=== PATIENT | male | born 1975 | race African-American/Black ===

== ENCOUNTER 2016-03-02 21:45 | Emergency (ER) | payer OTHER ==
[~2016-03-02 21:45] MED LIST: ALBU17IN INH; ALPR0.254 PO; AMLO10TA2 PO; ASPI81TA85 PO; CLAR500T3 PO; DOXY10CA PO; GLYB5TA PO; INVO1TAB4 PO; LISI20TA3 PO; MOTRIN PO; POLY2.5S OS; VENL75TA3 PO; VIST25CA PO
[2016-03-02] MEDS ORDERED: NORCO 5/325MG TABLET (BULK) As Ordered ONE (23:17)
[2016-03-02] MEDS ORDERED: CLINDAMYCIN 150 MG CAP As Ordered ONE (23:17)
--- NOTE | 2016-03-02 23:27 | EDDOCDS ---
Nurse's Notes [facility] Name: Jose C Pugh Age: 40 yrs Sex: Male : 1975 Arrival Date: 03/02/2016 Time: 21:45 Bed TR7 Private MD: Luis Enrique Ramires D Diagnosis: Cellulitis of face Presentation: 03/02 21:49 Presenting complaint: Patient states: that he has a "bump" on his face that it getting ms18 bigger. Pt states that he feels dizzy and nauseous. Adult Sepsis Screening: The patient does not have new or worsening altered mentation. Patient's respiratory rate is less than 22. Systolic blood pressure is greater than 100. Patient has a qSOFA score of 0- Negative Sepsis Screen. Suicide/Homicide risk assessment- the patient denies having any suicidal and/or homicidal ideations and does not present with any other emotional, behavioral or mental health complaints. Status: Patient is not a patient financial services coordinator or dependent. Transition of care: patient was not received from another setting of care. 21:49 Method Of Arrival: Walkin/Carried/Asstd ms18 21:53 Acuity: MARY Level 4 ms18 Triage Assessment: 21:51 General: Appears in no apparent distress, obese, uncomfortable, Behavior is appropriate ms18 for age, cooperative. Pain: Location: left cheek Pain currently is 8 out of 10 on a pain scale. HIV screening NA for this visit Offered previously. Neurological: No deficits noted. Respiratory: No deficits noted. Derm: Skin is pink, warm & dry. normal. Historical: - Allergies: IODINEIODINE CONTAINING; - Home Meds: 1. Invokana oral once daily 2. Lisinopril Oral once daily 3. Xanax 0.25 mg Oral tab 3 times per day 4. Glyburide Unknown Oral 1 tab - PMHx: Anxiety; Depression; Diabetes - IDDM: uncontrolled; Hypertension; - PSHx: none; - Social history: Smoking status: Patient uses tobacco products, current every day smoker. No barriers to communication noted, The patient speaks fluent Urdu. - Family history: Not pertinent. - : The pt / caregiver states he / she is not on anticoagulants. Home medication list is obtained from the patient. - Exposure Risk Screening:: None identified. Screenin:25 Screening information is obtained from the patient. Fall risk: No risks identified. cz Assistance ADL's: requires no assistance with activities of daily living. Abuse/DV Screen: The patient / caregiver reports he/she is: not in a situation that causes fear, pain or injury. Nutritional screening: No deficits noted. home support is adequate. Assessment: 23:25 Reassessment: Patient appears in no apparent distress at this time. Patient states cz symptoms have improved. Vital Signs: 21:47 BP 166 / 82; Pulse 81; Resp 18 S; Temp 98.6(O); Pulse Ox 98% on R/A; Weight 108.86 kg gr2 (R); Height 6 ft. 0 in. (182.88 cm) (R); Pain 4/10; 21:47 Body Mass Index 32.55 (108.86 kg, 182.88 cm) gr2 Vitals: 21:47 Log In Time: March 02, 2016 at 21:47. gr2 ED Course: 21:46 Patient visited by Palak August. gr2 21:46 Luis Enrique Ramires is Private Physician. gr2 21:46 Patient moved to Waiting gr2 21:48 Patient visited by Palak August. gr2 21:48 Patient moved to Pre RCE gr2 21:53 Triage Initiated ms18 22:41 Patient moved to Triage 2 cz 22:54 [facility]odd [facility]. mo1 22:54 Adiel Ryan MD is Attending Physician. mo1 23:06 Patient visited by Benito Dodd PA. mo1 23:18 Luis Enrique Ramires is Referral Physician. mo1 23:22 Patient moved to TR7 cz 23:25 The patient / caregiver is instructed regarding the plan of care and ED course. cz 23:25 No IV's were initiated during this patient's visit. No procedures done that require cz assistance. Administered Medications: 23:20 Drug: Clindamycin 300 mg [clindamycin 150 mg capsule (2 caps)] Route: PO; cz 23:20 Drug: HYDROcodone-acetaminophen 4 pack- 1 packets [hydrocodone 5 mg-acetaminophen 325 cz mg tablet (1 tabs)] {Co-Signature: catherine (Donald Tatum RN).} Route: PO; Order Results: There are currently no results for this order. Outcome: 23:18 Discharge ordered by Provider. mo1 23:25 Discharge Assessment: Patient awake, alert and oriented x 3. No cognitive and/or cz functional deficits noted. Patient verbalized understanding of disposition instructions. patient administered narcotics - no. The following High Risk Discharge criteria are identified: None. Discharged to home ambulatory. Condition: stable. Discharge instructions given to patient, Instructed on discharge instructions, follow up and referral plans. medication usage, Demonstrated understanding of instructions, medications, Pt was receptive of discharge instructions/ teaching. Prescriptions given X 1. No special radiology studies were completed. Property :Personal belongings accompany Pt. 23:26 Patient left the ED. cz Signatures: Rodger Barraza, RN RN cz Palak August gr2 Benito Dodd PA PA mo1 Thu Staples,RN RN ms18 Donald alexander MTDD
--- NOTE | 2016-03-02 23:27 | EDDOCDS ---
Physician Documentation [facility] Name: Jose C Pugh Age: 40 yrs Sex: Male : 1975 Arrival Date: 03/02/2016 Time: 21:45 Bed TR7 Private MD: Luis Enrique Ramires D Disposition: 03/02/16 23:18 Discharged to Home/Self Care. Impression: Cellulitis of face. - Condition is Stable. - Discharge Instructions: Cellulitis. - Prescriptions for Clindamycin HCl 300 mg Oral Capsule - take 1 capsule by ORAL route every 6 hours; 40 capsule. - Medication Reconciliation, Local Pharmacy Hours form. - Follow up: Luis Enrique Ramires; When: Call to arrange an appointment; Reason: Recheck today's complaints, Continuance of care. - Problem is new. - Symptoms are unchanged. Historical: - Allergies: IODINEIODINE CONTAINING; - Home Meds: 1. Invokana oral once daily 2. Lisinopril Oral once daily 3. Xanax 0.25 mg Oral tab 3 times per day 4. Glyburide Unknown Oral 1 tab - PMHx: Anxiety; Depression; Diabetes - IDDM: uncontrolled; Hypertension; - PSHx: none; - Social history: Smoking status: Patient uses tobacco products, current every day smoker. No barriers to communication noted, The patient speaks fluent Mauritanian. - Family history: Not pertinent. - : The pt / caregiver states he / she is not on anticoagulants. Home medication list is obtained from the patient. - Exposure Risk Screening:: None identified. Vital Signs: 03/02 21:47 BP 166 / 82; Pulse 81; Resp 18 S; Temp 98.6(O); Pulse Ox 98% on R/A; Weight 108.86 kg / gr2 240 lbs (R); Height 6 ft. 0 in. (182.88 cm) (R); Pain 4/10; 21:47 Body Mass Index 32.55 (108.86 kg, 182.88 cm) gr2 MDM: 23:15 Clindamycin 300 mg PO once ordered. mo1 23:15 HYDROcodone-acetaminophen 4 pack- 5 mg-325 mg 1 packets PO Per package directions; mo1 Dispense with patient. 1 po q4h prn for pain ordered. Administered Medications: 23:20 Drug: Clindamycin 300 mg [clindamycin 150 mg capsule (2 caps)] Route: PO; cz 23:20 Drug: HYDROcodone-acetaminophen 4 pack- 1 packets [hydrocodone 5 mg-acetaminophen 325 cz mg tablet (1 tabs)] {Co-Signature: catherine (Donald Tatum RN).} Route: PO; Signatures: Rodger Barraza RN RN cz Benito Dodd PA PA mo1 Thu Staples RN RN ms18 Donald alexander MTDD
--- NOTE | 2016-03-05 00:27 | EDDOCDS ---
Nurse's Notes [facility] Name: Jose C Pugh Age: 40 yrs Sex: Male : 1975 Arrival Date: 03/02/2016 Time: 21:45 Bed TR7 Private MD: Luis Enrique Ramires D Diagnosis: Cellulitis of face Presentation: 03/02 21:49 Presenting complaint: Patient states: that he has a "bump" on his face that it getting ms18 bigger. Pt states that he feels dizzy and nauseous. Adult Sepsis Screening: The patient does not have new or worsening altered mentation. Patient's respiratory rate is less than 22. Systolic blood pressure is greater than 100. Patient has a qSOFA score of 0- Negative Sepsis Screen. Suicide/Homicide risk assessment- the patient denies having any suicidal and/or homicidal ideations and does not present with any other emotional, behavioral or mental health complaints. Status: Patient is not a conference services director or dependent. Transition of care: patient was not received from another setting of care. 21:49 Method Of Arrival: Walkin/Carried/Asstd ms18 21:53 Acuity: MARY Level 4 ms18 Triage Assessment: 21:51 General: Appears in no apparent distress, obese, uncomfortable, Behavior is appropriate ms18 for age, cooperative. Pain: Location: left cheek Pain currently is 8 out of 10 on a pain scale. HIV screening NA for this visit Offered previously. Neurological: No deficits noted. Respiratory: No deficits noted. Derm: Skin is pink, warm & dry. normal. Historical: - Allergies: IODINEIODINE CONTAINING; - Home Meds: 1. Invokana oral once daily 2. Lisinopril Oral once daily 3. Xanax 0.25 mg Oral tab 3 times per day 4. Glyburide Unknown Oral 1 tab - PMHx: Anxiety; Depression; Diabetes - IDDM: uncontrolled; Hypertension; - PSHx: none; - Social history: Smoking status: Patient uses tobacco products, current every day smoker. No barriers to communication noted, The patient speaks fluent Malay. - Family history: Not pertinent. - : The pt / caregiver states he / she is not on anticoagulants. Home medication list is obtained from the patient. - Exposure Risk Screening:: None identified. Screenin:25 Screening information is obtained from the patient. Fall risk: No risks identified. cz Assistance ADL's: requires no assistance with activities of daily living. Abuse/DV Screen: The patient / caregiver reports he/she is: not in a situation that causes fear, pain or injury. Nutritional screening: No deficits noted. home support is adequate. Assessment: 23:25 Reassessment: Patient appears in no apparent distress at this time. Patient states cz symptoms have improved. Vital Signs: 21:47 BP 166 / 82; Pulse 81; Resp 18 S; Temp 98.6(O); Pulse Ox 98% on R/A; Weight 108.86 kg gr2 (R); Height 6 ft. 0 in. (182.88 cm) (R); Pain 4/10; 21:47 Body Mass Index 32.55 (108.86 kg, 182.88 cm) gr2 Vitals: 21:47 Log In Time: March 02, 2016 at 21:47. gr2 ED Course: 21:46 Patient visited by Palak August. gr2 21:46 Luis Enrique Ramires is Private Physician. gr2 21:46 Patient moved to Waiting gr2 21:48 Patient visited by Palak August. gr2 21:48 Patient moved to Pre RCE gr2 21:53 Triage Initiated ms18 22:41 Patient moved to Triage 2 cz 22:54 Benito Dodd PA is PHCP. mo1 22:54 Adiel Ryan MD is Attending Physician. mo1 23:06 Patient visited by Benito Dodd PA. mo1 23:18 Luis Enrique Ramires is Referral Physician. mo1 23:22 Patient moved to TR7 cz 23:25 The patient / caregiver is instructed regarding the plan of care and ED course. cz 23:25 No IV's were initiated during this patient's visit. No procedures done that require cz assistance. 23:28 Patient name changed from Jose C\\S\\\\S\\Pugh\\S\\ to Jose C\\S\\ \\S\\Pugh. EDMS 23:30 [facility] Payment Agreement was scanned into [employer] and attached to record. david 03/03 04:45 T-Sheet-- Draft Copy was scanned into [employer] and attached to record. david Administered Medications: 03/02 23:20 Drug: Clindamycin 300 mg [clindamycin 150 mg capsule (2 caps)] Route: PO; cz 23:20 Drug: HYDROcodone-acetaminophen 4 pack- 1 packets [hydrocodone 5 mg-acetaminophen 325 cz mg tablet (1 tabs)] {Co-Signature: catherine (Donald Tatum RN).} Route: PO; Order Results: There are currently no results for this order. Outcome: 23:18 Discharge ordered by Provider. mo1 23:25 Discharge Assessment: Patient awake, alert and oriented x 3. No cognitive and/or cz functional deficits noted. Patient verbalized understanding of disposition instructions. patient administered narcotics - no. The following High Risk Discharge criteria are identified: None. Discharged to home ambulatory. Condition: stable. Discharge instructions given to patient, Instructed on discharge instructions, follow up and referral plans. medication usage, Demonstrated understanding of instructions, medications, Pt was receptive of discharge instructions/ teaching. Prescriptions given X 1. No special radiology studies were completed. Property :Personal belongings accompany Pt. 23:26 Patient left the ED. cz Signatures: Dispatcher [employer] EDMS Rodger Barraza RN RN cz Palak August gr2 Benito Dodd PA PA mo1 Thu Staples RN RN ms18 Kati Mitchell RN Chart Complete MTDD
--- NOTE | 2016-03-05 00:27 | EDDOCDS ---
Physician Documentation [facility] Name: Jose C Pugh Age: 40 yrs Sex: Male : 1975 Arrival Date: 03/02/2016 Time: 21:45 Bed TR7 Private MD: Luis Enrique Ramires D Disposition: 03/02/16 23:18 Discharged to Home/Self Care. Impression: Cellulitis of face. - Condition is Stable. - Discharge Instructions: Cellulitis. - Prescriptions for Clindamycin HCl 300 mg Oral Capsule - take 1 capsule by ORAL route every 6 hours; 40 capsule. - Medication Reconciliation, Local Pharmacy Hours form. - Follow up: Luis Enrique Ramires; When: Call to arrange an appointment; Reason: Recheck today's complaints, Continuance of care. - Problem is new. - Symptoms are unchanged. Historical: - Allergies: IODINEIODINE CONTAINING; - Home Meds: 1. Invokana oral once daily 2. Lisinopril Oral once daily 3. Xanax 0.25 mg Oral tab 3 times per day 4. Glyburide Unknown Oral 1 tab - PMHx: Anxiety; Depression; Diabetes - IDDM: uncontrolled; Hypertension; - PSHx: none; - Social history: Smoking status: Patient uses tobacco products, current every day smoker. No barriers to communication noted, The patient speaks fluent Sudanese. - Family history: Not pertinent. - : The pt / caregiver states he / she is not on anticoagulants. Home medication list is obtained from the patient. - Exposure Risk Screening:: None identified. Vital Signs: 03/02 21:47 BP 166 / 82; Pulse 81; Resp 18 S; Temp 98.6(O); Pulse Ox 98% on R/A; Weight 108.86 kg / gr2 240 lbs (R); Height 6 ft. 0 in. (182.88 cm) (R); Pain 4/10; 21:47 Body Mass Index 32.55 (108.86 kg, 182.88 cm) gr2 MDM: 23:15 Clindamycin 300 mg PO once ordered. mo1 23:15 HYDROcodone-acetaminophen 4 pack- 5 mg-325 mg 1 packets PO Per package directions; mo1 Dispense with patient. 1 po q4h prn for pain ordered. 23:30 [facility] Payment Agreement was scanned into [employer] and attached to record. lja 23:30 Financial registration complete. 03/03 04:45 T-Sheet-- Draft Copy was scanned into [employer] and attached to record. [facility] Administered Medications: 03/02 23:20 Drug: Clindamycin 300 mg [clindamycin 150 mg capsule (2 caps)] Route: PO; cz 23:20 Drug: HYDROcodone-acetaminophen 4 pack- 1 packets [hydrocodone 5 mg-acetaminophen 325 cz mg tablet (1 tabs)] {Co-Signature: catherine (Donald Tatum RN).} Route: PO; Signatures: Rodger Barraza RN RN cz Benito Dodd PA PA mo1 Thu Staples RN RN ms18 Arel, Kati alexander The chart was reviewed and I authenticate all verbal orders and agree with the evaluation and treatment provided.Attachments: 23:30 [facility] Payment Agreement 03/03 04:45 T-Sheet-- Draft Copy [facility] Chart Complete MTDD
--- NOTE | 2016-03-05 00:27 | EDDOCDS ---
Physician Documentation [facility] Name: Jose C Pugh Age: 40 yrs Sex: Male : 1975 Arrival Date: 03/02/2016 Time: 21:45 Bed TR7 Private MD: Luis Enrique Ramires D Disposition: 03/02/16 23:18 Discharged to Home/Self Care. Impression: Cellulitis of face. - Condition is Stable. - Discharge Instructions: Cellulitis. - Prescriptions for Clindamycin HCl 300 mg Oral Capsule - take 1 capsule by ORAL route every 6 hours; 40 capsule. - Medication Reconciliation, Local Pharmacy Hours form. - Follow up: Luis Enrique Ramires; When: Call to arrange an appointment; Reason: Recheck today's complaints, Continuance of care. - Problem is new. - Symptoms are unchanged. Historical: - Allergies: IODINEIODINE CONTAINING; - Home Meds: 1. Invokana oral once daily 2. Lisinopril Oral once daily 3. Xanax 0.25 mg Oral tab 3 times per day 4. Glyburide Unknown Oral 1 tab - PMHx: Anxiety; Depression; Diabetes - IDDM: uncontrolled; Hypertension; - PSHx: none; - Social history: Smoking status: Patient uses tobacco products, current every day smoker. No barriers to communication noted, The patient speaks fluent Malian. - Family history: Not pertinent. - : The pt / caregiver states he / she is not on anticoagulants. Home medication list is obtained from the patient. - Exposure Risk Screening:: None identified. Vital Signs: 03/02 21:47 BP 166 / 82; Pulse 81; Resp 18 S; Temp 98.6(O); Pulse Ox 98% on R/A; Weight 108.86 kg / gr2 240 lbs (R); Height 6 ft. 0 in. (182.88 cm) (R); Pain 4/10; 21:47 Body Mass Index 32.55 (108.86 kg, 182.88 cm) gr2 MDM: 23:15 Clindamycin 300 mg PO once ordered. mo1 23:15 HYDROcodone-acetaminophen 4 pack- 5 mg-325 mg 1 packets PO Per package directions; mo1 Dispense with patient. 1 po q4h prn for pain ordered. 23:30 [facility] Payment Agreement was scanned into [employer] and attached to record. lja 23:30 Financial registration complete. 03/03 04:45 T-Sheet-- Draft Copy was scanned into [employer] and attached to record. [facility] Administered Medications: 03/02 23:20 Drug: Clindamycin 300 mg [clindamycin 150 mg capsule (2 caps)] Route: PO; cz 23:20 Drug: HYDROcodone-acetaminophen 4 pack- 1 packets [hydrocodone 5 mg-acetaminophen 325 cz mg tablet (1 tabs)] {Co-Signature: catherine (Donald Tatum RN).} Route: PO; Signatures: Rodger Barraza RN RN cz Benito Dodd PA PA mo1 Thu Staples RN RN ms18 Arel, Kati alexander The chart was reviewed and I authenticate all verbal orders and agree with the evaluation and treatment provided.Attachments: 23:30 [facility] Payment Agreement 03/03 04:45 T-Sheet-- Draft Copy [facility] Chart Complete MTDD
== END 2016-03-02 23:26 | disposition home or self-care (01) ==
LOC: M ED 21:45
DX: L03.211 Cellulitis of face (principal); F41.9 Anxiety disorder, unspecified; F32.9 Major depressive disorder, single episode, unspecified; E10.9 Type 1 diabetes mellitus without complications; I10 Essential (primary) hypertension; Z72.0 Tobacco use; Z79.899 Other long term (current) drug therapy; Z91.09 Other allergy status, other than to drugs and biological substances

== ENCOUNTER 2016-03-22 22:56 | Emergency (ER) | payer OTHER ==
[2016-03-23] MEDS ORDERED: dexameTHASONE 20 MG/5 ML VIAL (J1100) As Ordered ONE (00:25)
[2016-03-23] MEDS ORDERED: IPRATROPIUM 0.5MG/ALBUTEROL 2.5MG INH SOL UD 3ML (DUONEB)(J7620) As Ordered ONE (00:34)
--- NOTE | 2016-03-23 01:00 | REPUSA ---
CLINICAL HISTORY: Headaches. TECHNIQUE: Multiple axial brain CT scan sections were obtained from base to vertex without contrast a dministration. COMMENTS: The study shows normal configuration of sella turcica. There are no intra or extra-axial collections. There is no mass effect or midline shift. There is no evidence of hematoma formation. No hydrocephal us is present. No abnormal calcifications are noted. No significant abnormalities are seen either in the posterior fossa or supratentorial compartment. The sinuses and left mastoid air cells are patent. IMPRESSION: Right mastoid effusion. No evidence of acute intracranial pathology. Thank you for your kind referral of this patient.
--- NOTE | 2016-03-23 01:04 | REP ---
Clinical: Acute cough . Comparison: 08/03/2011 . Technique: PA and lateral. Findings: The mediastinum and cardiac silhouette are normal. The lung bass are clear and without acute consolidation, effusion, or pneumothorax. The skeletal structures are intact and normal. Impression: 1. No acute cardiopulmonary process. Signed by Ray Lui MD 03/23/2016 12:55 A
--- NOTE | 2016-03-23 02:15 | EDDOCDS ---
Nurse's Notes [facility] Name: Jose C Pugh Age: 40 yrs Sex: Male : 1975 Arrival Date: 03/22/2016 Time: 22:56 Bed 11 Private MD: Luis Enrique Ramires Diagnosis: Acute bronchitis Presentation: 03/22 23:06 Presenting complaint: Patient states: Had a coughing spell that girlfriend said looked jo3 like a seizure. Same thing happened on . Today's episode happened this afternoon. Pt has c/o in left fingers and entire body feels sore and feels like he is having difficulty collecting thoughts Pt reports severe sharp pain to right side of head. Adult Sepsis Screening: The patient does not have new or worsening altered mentation. Patient's respiratory rate is less than 22. Systolic blood pressure is greater than 100. Patient has a qSOFA score of 0- Negative Sepsis Screen. Suicide/Homicide risk assessment- the patient denies having any suicidal and/or homicidal ideations and does not present with any other emotional, behavioral or mental health complaints. Status: Patient is not a community service officer coordinator or dependent. Transition of care: patient was not received from another setting of care. 23:06 Method Of Arrival: Walkin/Carried/Asstd jo3 23:06 Acuity: MARY Level 2 jo3 Triage Assessment: 23:14 General: Appears in no apparent distress, Behavior is appropriate for age, cooperative. jo3 Pain: Pain currently is 9 out of 10 on a pain scale. HIV screening NA for this visit Offered previously. Neurological: Level of Consciousness is awake, alert, Oriented to person, place, time. Respiratory: Airway is patent Respiratory effort is even, unlabored, Derm: Skin is pink, warm & dry. Historical: - Allergies: IODINEIODINE CONTAINING; Tramadol HCl; - Home Meds: 1. Januvia 100 mg oral tab 1 tab once daily Has not started yet 2. Flovent 100mcg diskus Inhl twice a day Has not started yet 3. Motrin Oral 600 mg three times a day 4. alprazolam 0.25 mg Oral TbDL [id number] as needed 5. Paxil 10 mg Oral tab 1 tab once daily 6. Norvasc 10 mg Oral tab 1 tab once daily 7. Ventolin HFA 90 mcg/actuation Nebulizer HFAA 2 puffs every 4-6 hours 8. lisinopril-hydrochlorothiazide 20-25 mg oral tab 1 tab once daily - PMHx: Anxiety; Depression; Diabetes - IDDM: uncontrolled; Hypertension; - PSHx: none; - Social history: Smoking status: Patient uses tobacco products, light tobacco smoker. No barriers to communication noted, The patient speaks fluent Palauan, Speaks appropriately for age. - Family history: Not pertinent. - : The pt / caregiver states he / she is not on anticoagulants. Home medication list is obtained from the patient. - Exposure Risk Screening:: None identified. Screenin:04 Screening information is obtained from the patient. Fall risk: No risks identified. mlc Assistance ADL's: requires no assistance with activities of daily living. Abuse/DV Screen: The patient / caregiver reports he/she is: not in a situation that causes fear, pain or injury. Nutritional screening: No deficits noted. Advance Directives: There is no active DNR order. home support is adequate. Assessment: 23:42 General: Appears in no apparent distress, comfortable, Behavior is appropriate for age, mlc cooperative. Pain: Location: right temporal area and right holiness Pain At worst was 10 out of 10 on a pain scale. Quality of pain is described as stabbing, Is intermittent. Neurological: Level of Consciousness is awake, alert, obeys commands, Oriented to person, place, time, Moves all extremities. Speech is normal, Facial symmetry appears normal, Pupils are PERRLA, Numbness in palmar aspect of distal phalanx of left little finger, palmar aspect of distal phalanx of left ring finger, palmar aspect of distal phalanx of left middle finger, palmar aspect of distal phalanx of left index finger and palmar aspect of distal phalanx of left thumb. Cardiovascular: Capillary refill < 3 seconds Heart tones S1 S2 present Rhythm is regular. Respiratory: Airway is patent Respiratory effort is even, unlabored, Respiratory pattern is regular, Breath sounds are clear bilaterally. Reports cough that is non-productive. GI: Abdomen is non- distended Bowel sounds present X 4 quads. Abd is soft X 4 quads Abd is tender to palpation X 4 quads. Reports vomiting, last vomit was yesterday morning, pt reports it being dark red. Derm: Skin is normal. 03/23 00:33 Reassessment: Patient appears in no apparent distress at this time. Patient states mlc symptoms have not improved. no changes since prior. pt medicated per order. resp easy/unlabored. . 02:05 General: Appears in no apparent distress, comfortable, to be sleeping. Respiratory: mlc Airway is patent Respiratory effort is even, unlabored, Respiratory pattern is regular. 02:13 General: Appears in no apparent distress, comfortable, Behavior is cooperative. mlc Neurological: Level of Consciousness is awake, alert, Oriented to person, place, time. Respiratory: Airway is patent Respiratory effort is even, unlabored, Respiratory pattern is regular. Vital Signs: 03/22 22:59 BP 143 / 79; Pulse 97; Resp 18 S; Temp 99.6(O); Pulse Ox 98% on R/A; Weight 113.4 kg gr2 (R); Height 6 ft. 0 in. (182.88 cm) (R); Pain 2/10; 23:04 Pulse 98 MON; Pulse Ox 97% ; mlc 23:04 BP 143 / 84 (auto/); mlc 23:39 BP 127 / 58 (auto/); mlc 23:40 Pulse 94 MON; Pulse Ox 96% ; mlc 23:45 BP 143 / 78 (auto/); mlc 23:46 Pulse 92 MON; Pulse Ox 95% ; mlc 03/23 00:00 BP 143 / 64 (auto/); mlc 00:01 Pulse 94 MON; Pulse Ox 96% ; mlc 00:15 BP 153 / 82 (auto/); mlc 00:16 Pulse 98 MON; Pulse Ox 95% ; mlc 00:30 Pulse 92 MON; Pulse Ox 96% ; mlc 00:32 BP 138 / 63 (auto/); mlc 00:45 BP 123 / 67 (auto/); mlc 00:46 Pulse 92 MON; Pulse Ox 100% ; mlc 01:00 BP 129 / 63 (auto/); mlc 01:01 Pulse 94 MON; Pulse Ox 93% ; mlc 01:15 BP 139 / 72 (auto/); mlc 01:16 Pulse 96 MON; Pulse Ox 91% ; mlc 01:30 BP 138 / 67 (auto/); mlc 01:31 Pulse 98 MON; Pulse Ox 98% ; mlc 01:45 BP 143 / 71 (auto/); mlc 01:46 Pulse 98 MON; Pulse Ox 98% ; mlc 02:00 BP 118 / 49 (auto/); mlc 02:00 Pulse 94 MON; Pulse Ox 97% ; mlc 02:08 BP 112 / 52; Pulse 86; Resp 18; Temp 98.3(O); Pulse Ox 100% on R/A; Pain 8/10; luis fernando 03/22 22:59 Body Mass Index 33.91 (113.40 kg, 182.88 cm) gr2 Vitals: 03/22 22:59 Log In Time: March 22, 2016 at 22:59. RN notified that patient meets Red Flag gr2 criteria. ED Course: 22:58 Patient visited by Palak August. gr2 22:58 Luis Enrique Ramires is Private Physician. gr2 22:58 Patient moved to Waiting gr2 23:01 Patient visited by Palak August. gr2 23:01 Patient moved to Pre RCE gr2 23:04 Bed in low position. Side rails up X2. mlc 23:08 Triage Initiated jo3 23:30 Nargis Kraft RN is Primary Nurse. jo3 23:30 Patient moved to 11 jo3 23:31 Audie Rocha DO is Attending Physician. cs11 23:31 Patient visited by Audie Rocha DO. cs11 23:38 [facility] was scanned into [employer] and attached to record. pm4 23:43 Patient name changed from Jose C\S\\S\Pugh\S\ to Jose C\S\ \S\Pugh. EDMS 23:46 Patient visited by Nargis Kraft RN. mlc 03/23 00:22 Patient moved to Radiology jenaro 00:34 Patient visited by Nargis Kraft RN. mlc 00:34 The patient / caregiver is instructed regarding the plan of care and ED course. mlc 00:[address] jenaro 01:04 Patient moved to 11 mlc 01:19 CT Head Without Contrast Returned. EDMS 01:19 Chest, 2 View (pa\E\lat) Returned. EDMS 01:51 Patient visited by Daiana Umanzor PCA. luis fernando 02:04 Luis Enrique Ramires is Referral Physician. cs11 02:06 Patient visited by Nargis Kraft RN. mlc 02:09 Patient visited by Daiana Umanzor PCA. luis fernando 02:13 No IV's were initiated during this patient's visit. No procedures done that require mlc assistance. Administered Medications: 00:33 Drug: Decadron - Dexamethasone Sodium Phosphate 10 mg [dexamethasone 4 mg/mL injection mlc solution (2.5 mL)] Route: IM; Site: left vastus lateralis; 00:45 Drug: Albuterol-Ipratropium 3 ml [ipratropium-albuterol 0.5 mg-3 mg(2.5 mg base)/3 mL jc3 nebulization soln (3 mL)] Route: Inhalation; RT: 00:45 Initial Med Neb Given as ordered. Respiratory: Breath sounds are clear Breath sounds jc3 are diminished bilaterally. Order Results: Radiology Order: CT Head Without Contrast Test: CT Head Without Contrast REASON FOR EXAMINATION: headache; ; CLINICAL HISTORY: Headaches.; TECHNIQUE: Multiple axial brain CT scan sections were obtained from base to vertex without contrast a; dministration.; COMMENTS:; The study shows normal configuration of sella turcica. There are no intra or extra-axial collections.; There is no mass effect or midline shift. There is no evidence of hematoma formation. No hydrocephal; us is present. No abnormal calcifications are noted.; No significant abnormalities are seen either in the posterior fossa or supratentorial compartment.; The sinuses and left mastoid air cells are patent.; IMPRESSION:; Right mastoid effusion.; No evidence of acute intracranial pathology.; Thank you for your kind referral of this patient.; ; Radiology Order: Chest, 2 View (pa\E\lat) Test: Chest, 2 View (pa\E\lat) REASON FOR EXAMINATION: Cough; Clinical: Acute cough .; ; Comparison: 08/03/2011 .; ; Technique: PA and lateral.; ; Findings:; The mediastinum and cardiac silhouette are normal. The lung bass are clear and; without acute consolidation, effusion, or pneumothorax. The skeletal structures; are intact and normal.; ; Impression:; 1. No acute cardiopulmonary process.; ; ; Signed by; Ray Lui MD 03/23/2016 12:55 A; Outcome: 02:04 Discharge ordered by Provider. cs11 02:13 Discharge Assessment: Patient awake, alert and oriented x 3. No cognitive and/or mlc functional deficits noted. Patient verbalized understanding of disposition instructions. patient administered narcotics - no. The following High Risk Discharge criteria are identified: None. Discharged to home ambulatory. Condition: good Condition: stable. Discharge instructions given to patient, Instructed on discharge instructions, follow up and referral plans. medication usage, Demonstrated understanding of instructions, medications, Pt was receptive of discharge instructions/ teaching. Prescriptions given X 2, Work note provided to patient. CT Study completed. Property sent home with patient. 02:15 [place] [facility] [place] Signatures: Dispatcher [employer] EDMS Abel Bai Jennifer, RN RN [email or web address] Sumit Reynolds jc3 Daiana Umanzor, CATHI SET UP MECHANIC CROWN ASSEMBLY MACHINE Audie Love, DO DO cs11 Palak August gr2 Nargis Kraft RN RN [facility] Luis Eduardo Joseph, Reg Reg pm4 Corrections: (The following items were deleted from the chart) 03/22 23:16 23:06 Presenting complaint: Patient states: Had a coughing spell that girlfriend said jo3 looked like a seizure. Same thing happened on . Today's episode happened this afternoon. Pt has c/o in left fingers and entire body feels sore and feels like he is having difficulty collecting thoughts jo3 23:16 23:06 Acuity: MARY Level 3 jo3 jo3 MTDD
--- NOTE | 2016-03-23 02:15 | EDDOCDS ---
Physician Documentation [facility] Name: Jose C Pugh Age: 40 yrs Sex: Male : 1975 Arrival Date: 03/22/2016 Time: 22:56 Bed 11 Private MD: Luis Enrique Ramires Disposition: 03/23/16 02:04 Discharged to Home/Self Care. Impression: Acute bronchitis. - Condition is Stable. - Prescriptions for Prednisone 20 mg Oral Tablet - take 3 tablet by ORAL route once daily for 5 days; 15 tablet. Zithromax Z- Antonio 250 mg Oral Tablet - take 1 tablet by ORAL route as directed for 5 days Day 1- take two tablets once. Day 2, 3, 4 , 5 take one tablet once daily.; 6 tablet. - Medication Reconciliation, Local Pharmacy Hours, Work Release Form - 1 day form. - Follow up: Luis Enrique Ramires; When: Call to arrange an appointment; Reason: Recheck today's complaints. - Problem is an ongoing problem. - Symptoms have improved. Historical: - Allergies: IODINEIODINE CONTAINING; Tramadol HCl; - Home Meds: 1. Januvia 100 mg oral tab 1 tab once daily Has not started yet 2. Flovent 100mcg diskus Inhl twice a day Has not started yet 3. Motrin Oral 600 mg three times a day 4. alprazolam 0.25 mg Oral TbDL [id number] as needed 5. Paxil 10 mg Oral tab 1 tab once daily 6. Norvasc 10 mg Oral tab 1 tab once daily 7. Ventolin HFA 90 mcg/actuation Nebulizer HFAA 2 puffs every 4-6 hours 8. lisinopril-hydrochlorothiazide 20-25 mg oral tab 1 tab once daily - PMHx: Anxiety; Depression; Diabetes - IDDM: uncontrolled; Hypertension; - PSHx: none; - Social history: Smoking status: Patient uses tobacco products, light tobacco smoker. No barriers to communication noted, The patient speaks fluent Argentine, Speaks appropriately for age. - Family history: Not pertinent. - : The pt / caregiver states he / she is not on anticoagulants. Home medication list is obtained from the patient. - Exposure Risk Screening:: None identified. Vital Signs: 03/22 22:59 BP 143 / 79; Pulse 97; Resp 18 S; Temp 99.6(O); Pulse Ox 98% on R/A; Weight 113.4 kg / gr2 250 lbs (R); Height 6 ft. 0 in. (182.88 cm) (R); Pain 2/10; 23:04 Pulse 98 MON; Pulse Ox 97% ; mlc 23:04 BP 143 / 84 (auto/); mlc 23:39 BP 127 / 58 (auto/); mlc 23:40 Pulse 94 MON; Pulse Ox 96% ; mlc 23:45 BP 143 / 78 (auto/); mlc 23:46 Pulse 92 MON; Pulse Ox 95% ; mlc 03/23 00:00 BP 143 / 64 (auto/); mlc 00:01 Pulse 94 MON; Pulse Ox 96% ; mlc 00:15 BP 153 / 82 (auto/); mlc 00:16 Pulse 98 MON; Pulse Ox 95% ; mlc 00:30 Pulse 92 MON; Pulse Ox 96% ; mlc 00:32 BP 138 / 63 (auto/); mlc 00:45 BP 123 / 67 (auto/); mlc 00:46 Pulse 92 MON; Pulse Ox 100% ; mlc 01:00 BP 129 / 63 (auto/); mlc 01:01 Pulse 94 MON; Pulse Ox 93% ; mlc 01:15 BP 139 / 72 (auto/); mlc 01:16 Pulse 96 MON; Pulse Ox 91% ; mlc 01:30 BP 138 / 67 (auto/); mlc 01:31 Pulse 98 MON; Pulse Ox 98% ; mlc 01:45 BP 143 / 71 (auto/); mlc 01:46 Pulse 98 MON; Pulse Ox 98% ; mlc 02:00 BP 118 / 49 (auto/); mlc 02:00 Pulse 94 MON; Pulse Ox 97% ; mlc 02:08 BP 112 / 52; Pulse 86; Resp 18; Temp 98.3(O); Pulse Ox 100% on R/A; Pain 8/10; luis fernando 03/22 22:59 Body Mass Index 33.91 (113.40 kg, 182.88 cm) gr2 MDM: 03/22 23:37 Financial registration complete. pm4 23:38 [facility] Payment Agreement was scanned into [employer] and attached to record. pm4 03/23 00:19 CT Head Without Contrast Ordered. EDMS 00:21 Chest, 2 View (pa\E\lat) Ordered. EDMS 00:22 Decadron - Dexamethasone Sodium Phosphate 10 mg IM once ordered. cs11 00:22 Albuterol-Ipratropium 3 ml Inhalation once ordered. cs11 00:22 Call Respiratory ordered. cs11 00:22 Call Respiratory complete. luis fernando Administered Medications: 00:33 Drug: Decadron - Dexamethasone Sodium Phosphate 10 mg [dexamethasone 4 mg/mL injection mlc solution (2.5 mL)] Route: IM; Site: left vastus lateralis; 00:45 Drug: Albuterol-Ipratropium 3 ml [ipratropium-albuterol 0.5 mg-3 mg(2.5 mg base)/3 mL jc3 nebulization soln (3 mL)] Route: Inhalation; Signatures: Dispatcher [employer] EDMS Berenice Banerjee RN RN jo3 Daiana Umanzor, BAND PRESSER BAND PRESSER Audie Love, DO DO cs11 Nargis Kraft RN RN mlc Montondo, Paul, Reg Reg pm4 Sumit Reynolds jc3 The chart was reviewed and I authenticate all verbal orders and agree with the evaluation and treatment provided.Attachments: 03/22 23:38 [facility] [place] Agreement pm4 MTDD
--- NOTE | 2016-03-25 03:15 | EDDOCDS ---
Nurse's Notes [facility] Name: Jose C Pugh Age: 40 yrs Sex: Male : 1975 Arrival Date: 03/22/2016 Time: 22:56 Bed 11 Private MD: Luis Enrique Ramires Diagnosis: Acute bronchitis Presentation: 03/22 23:06 Presenting complaint: Patient states: Had a coughing spell that girlfriend said looked jo3 like a seizure. Same thing happened on . Today's episode happened this afternoon. Pt has c/o in left fingers and entire body feels sore and feels like he is having difficulty collecting thoughts Pt reports severe sharp pain to right side of head. Adult Sepsis Screening: The patient does not have new or worsening altered mentation. Patient's respiratory rate is less than 22. Systolic blood pressure is greater than 100. Patient has a qSOFA score of 0- Negative Sepsis Screen. Suicide/Homicide risk assessment- the patient denies having any suicidal and/or homicidal ideations and does not present with any other emotional, behavioral or mental health complaints. Status: Patient is not a director of home health services or dependent. Transition of care: patient was not received from another setting of care. 23:06 Method Of Arrival: Walkin/Carried/Asstd jo3 23:06 Acuity: MARY Level 2 jo3 Triage Assessment: 23:14 General: Appears in no apparent distress, Behavior is appropriate for age, cooperative. jo3 Pain: Pain currently is 9 out of 10 on a pain scale. HIV screening NA for this visit Offered previously. Neurological: Level of Consciousness is awake, alert, Oriented to person, place, time. Respiratory: Airway is patent Respiratory effort is even, unlabored, Derm: Skin is pink, warm & dry. Historical: - Allergies: IODINEIODINE CONTAINING; Tramadol HCl; - Home Meds: 1. Januvia 100 mg oral tab 1 tab once daily Has not started yet 2. Flovent 100mcg diskus Inhl twice a day Has not started yet 3. Motrin Oral 600 mg three times a day 4. alprazolam 0.25 mg Oral TbDL [id number] as needed 5. Paxil 10 mg Oral tab 1 tab once daily 6. Norvasc 10 mg Oral tab 1 tab once daily 7. Ventolin HFA 90 mcg/actuation Nebulizer HFAA 2 puffs every 4-6 hours 8. lisinopril-hydrochlorothiazide 20-25 mg oral tab 1 tab once daily - PMHx: Anxiety; Depression; Diabetes - IDDM: uncontrolled; Hypertension; - PSHx: none; - Social history: Smoking status: Patient uses tobacco products, light tobacco smoker. No barriers to communication noted, The patient speaks fluent Greek, Speaks appropriately for age. - Family history: Not pertinent. - : The pt / caregiver states he / she is not on anticoagulants. Home medication list is obtained from the patient. - Exposure Risk Screening:: None identified. Screenin:04 Screening information is obtained from the patient. Fall risk: No risks identified. mlc Assistance ADL's: requires no assistance with activities of daily living. Abuse/DV Screen: The patient / caregiver reports he/she is: not in a situation that causes fear, pain or injury. Nutritional screening: No deficits noted. Advance Directives: There is no active DNR order. home support is adequate. Assessment: 23:42 General: Appears in no apparent distress, comfortable, Behavior is appropriate for age, mlc cooperative. Pain: Location: right temporal area and right christianity Pain At worst was 10 out of 10 on a pain scale. Quality of pain is described as stabbing, Is intermittent. Neurological: Level of Consciousness is awake, alert, obeys commands, Oriented to person, place, time, Moves all extremities. Speech is normal, Facial symmetry appears normal, Pupils are PERRLA, Numbness in palmar aspect of distal phalanx of left little finger, palmar aspect of distal phalanx of left ring finger, palmar aspect of distal phalanx of left middle finger, palmar aspect of distal phalanx of left index finger and palmar aspect of distal phalanx of left thumb. Cardiovascular: Capillary refill < 3 seconds Heart tones S1 S2 present Rhythm is regular. Respiratory: Airway is patent Respiratory effort is even, unlabored, Respiratory pattern is regular, Breath sounds are clear bilaterally. Reports cough that is non-productive. GI: Abdomen is non- distended Bowel sounds present X 4 quads. Abd is soft X 4 quads Abd is tender to palpation X 4 quads. Reports vomiting, last vomit was yesterday morning, pt reports it being dark red. Derm: Skin is normal. 03/23 00:33 Reassessment: Patient appears in no apparent distress at this time. Patient states mlc symptoms have not improved. no changes since prior. pt medicated per order. resp easy/unlabored. . 02:05 General: Appears in no apparent distress, comfortable, to be sleeping. Respiratory: mlc Airway is patent Respiratory effort is even, unlabored, Respiratory pattern is regular. 02:13 General: Appears in no apparent distress, comfortable, Behavior is cooperative. mlc Neurological: Level of Consciousness is awake, alert, Oriented to person, place, time. Respiratory: Airway is patent Respiratory effort is even, unlabored, Respiratory pattern is regular. Vital Signs: 03/22 22:59 BP 143 / 79; Pulse 97; Resp 18 S; Temp 99.6(O); Pulse Ox 98% on R/A; Weight 113.4 kg gr2 (R); Height 6 ft. 0 in. (182.88 cm) (R); Pain 2/10; 23:04 Pulse 98 MON; Pulse Ox 97% ; mlc 23:04 BP 143 / 84 (auto/); mlc 23:39 BP 127 / 58 (auto/); mlc 23:40 Pulse 94 MON; Pulse Ox 96% ; mlc 23:45 BP 143 / 78 (auto/); mlc 23:46 Pulse 92 MON; Pulse Ox 95% ; mlc 03/23 00:00 BP 143 / 64 (auto/); mlc 00:01 Pulse 94 MON; Pulse Ox 96% ; mlc 00:15 BP 153 / 82 (auto/); mlc 00:16 Pulse 98 MON; Pulse Ox 95% ; mlc 00:30 Pulse 92 MON; Pulse Ox 96% ; mlc 00:32 BP 138 / 63 (auto/); mlc 00:45 BP 123 / 67 (auto/); mlc 00:46 Pulse 92 MON; Pulse Ox 100% ; mlc 01:00 BP 129 / 63 (auto/); mlc 01:01 Pulse 94 MON; Pulse Ox 93% ; mlc 01:15 BP 139 / 72 (auto/); mlc 01:16 Pulse 96 MON; Pulse Ox 91% ; mlc 01:30 BP 138 / 67 (auto/); mlc 01:31 Pulse 98 MON; Pulse Ox 98% ; mlc 01:45 BP 143 / 71 (auto/); mlc 01:46 Pulse 98 MON; Pulse Ox 98% ; mlc 02:00 BP 118 / 49 (auto/); mlc 02:00 Pulse 94 MON; Pulse Ox 97% ; mlc 02:08 BP 112 / 52; Pulse 86; Resp 18; Temp 98.3(O); Pulse Ox 100% on R/A; Pain 8/10; luis fernando 03/22 22:59 Body Mass Index 33.91 (113.40 kg, 182.88 cm) gr2 Vitals: 03/22 22:59 Log In Time: March 22, 2016 at 22:59. RN notified that patient meets Red Flag gr2 criteria. ED Course: 22:58 Patient visited by Palak August. gr2 22:58 Luis Enrique Ramires is Private Physician. gr2 22:58 Patient moved to Waiting gr2 23:01 Patient visited by Palak August. gr2 23:01 Patient moved to Pre RCE gr2 23:04 Bed in low position. Side rails up X2. mlc 23:08 Triage Initiated jo3 23:30 Nargis Kraft RN is Primary Nurse. jo3 23:30 Patient moved to 11 jo3 23:31 Audie Rocha DO is Attending Physician. cs11 23:31 Patient visited by Audie Rocha DO. cs11 23:38 [facility] Payment Agreement was scanned into [employer] and attached to record. pm4 23:43 Patient name changed from Jose C\S\\S\Pugh\S\ to Jose C\S\ \S\Pugh. EDMS 23:46 Patient visited by Nargis Kraft RN. mlc 03/23 00:22 Patient moved to Radiology jenaro 00:34 Patient visited by Nargis Kraft RN. mlc 00:34 The patient / caregiver is instructed regarding the plan of care and ED course. mlc 00:[address] jenaro 01:04 Patient moved to 11 mlc 01:19 CT Head Without Contrast Returned. EDMS 01:19 Chest, 2 View (pa\E\lat) Returned. EDMS 01:51 Patient visited by Daiana Umanzor PCA. luis fernando 02:04 Luis Enrique Ramires is Referral Physician. cs11 02:06 Patient visited by Nargis Kratf RN. mlc 02:09 Patient visited by Daiana Umanzor PCA. luis fernando 02:13 No IV's were initiated during this patient's visit. No procedures done that require mlc assistance. 12:36 T-Sheet-- Draft Copy was scanned into [employer] and attached to record. gb Administered Medications: 00:33 Drug: Decadron - Dexamethasone Sodium Phosphate 10 mg [dexamethasone 4 mg/mL injection mlc solution (2.5 mL)] Route: IM; Site: left vastus lateralis; 00:45 Drug: Albuterol-Ipratropium 3 ml [ipratropium-albuterol 0.5 mg-3 mg(2.5 mg base)/3 mL jc3 nebulization soln (3 mL)] Route: Inhalation; RT: 00:45 Initial Med Neb Given as ordered. Respiratory: Breath sounds are clear Breath sounds jc3 are diminished bilaterally. Order Results: Radiology Order: CT Head Without Contrast Test: CT Head Without Contrast REASON FOR EXAMINATION: headache; ; CLINICAL HISTORY: Headaches.; TECHNIQUE: Multiple axial brain CT scan sections were obtained from base to vertex without contrast a; dministration.; COMMENTS:; The study shows normal configuration of sella turcica. There are no intra or extra-axial collections.; There is no mass effect or midline shift. There is no evidence of hematoma formation. No hydrocephal; us is present. No abnormal calcifications are noted.; No significant abnormalities are seen either in the posterior fossa or supratentorial compartment.; The sinuses and left mastoid air cells are patent.; IMPRESSION:; Right mastoid effusion.; No evidence of acute intracranial pathology.; Thank you for your kind referral of this patient.; ; Radiology Order: Chest, 2 View (pa\E\lat) Test: Chest, 2 View (pa\E\lat) REASON FOR EXAMINATION: Cough; Clinical: Acute cough .; ; Comparison: 08/03/2011 .; ; Technique: PA and lateral.; ; Findings:; The mediastinum and cardiac silhouette are normal. The lung bass are clear and; without acute consolidation, effusion, or pneumothorax. The skeletal structures; are intact and normal.; ; Impression:; 1. No acute cardiopulmonary process.; ; ; Signed by; Ray Lui MD 03/23/2016 12:55 A; Outcome: 02:04 Discharge ordered by Provider. cs11 02:13 Discharge Assessment: Patient awake, alert and oriented x 3. No cognitive and/or mlc functional deficits noted. Patient verbalized understanding of disposition instructions. patient administered narcotics - no. The following High Risk Discharge criteria are identified: None. Discharged to home ambulatory. Condition: good Condition: stable. Discharge instructions given to patient, Instructed on discharge instructions, follow up and referral plans. medication usage, Demonstrated understanding of instructions, medications, Pt was receptive of discharge instructions/ teaching. Prescriptions given X 2, Work note provided to patient. CT Study completed. Property sent home with patient. 02:15 Patient left the ED. mlc Signatures: Dispatcher [employer] EDMS Abel Bai jenaro Rakel Rdz, Reg Reg gb Berenice Banerjee,RN RN jo3 Sumit Reynolds jc3 Daiana Umanzor, CATHI SPRING CRATER Audie Love DO DO cs11 Palak August gr2 Nargis Kraft RN RN [facility] Luis Eduardo Joseph, Reg Reg pm4 Corrections: (The following items were deleted from the chart) 03/22 23:16 23:06 Presenting complaint: Patient states: Had a coughing spell that girlfriend said jo3 looked like a seizure. Same thing happened on . Today's episode happened this afternoon. Pt has c/o in left fingers and entire body feels sore and feels like he is having difficulty collecting thoughts jo3 23:16 23:06 Acuity: MARY Level 3 jo3 jo3 Chart Complete MTDD
--- NOTE | 2016-03-25 03:15 | EDDOCDS ---
Physician Documentation [facility] Name: Jose C Pugh Age: 40 yrs Sex: Male : 1975 Arrival Date: 03/22/2016 Time: 22:56 Bed 11 Private MD: Luis Enrique Ramires Disposition: 03/23/16 02:04 Discharged to Home/Self Care. Impression: Acute bronchitis. - Condition is Stable. - Prescriptions for Prednisone 20 mg Oral Tablet - take 3 tablet by ORAL route once daily for 5 days; 15 tablet. Zithromax Z- Antonio 250 mg Oral Tablet - take 1 tablet by ORAL route as directed for 5 days Day 1- take two tablets once. Day 2, 3, 4 , 5 take one tablet once daily.; 6 tablet. - Medication Reconciliation, Local Pharmacy Hours, Work Release Form - 1 day form. - Follow up: Luis Enrique Ramires; When: Call to arrange an appointment; Reason: Recheck today's complaints. - Problem is an ongoing problem. - Symptoms have improved. Historical: - Allergies: IODINEIODINE CONTAINING; Tramadol HCl; - Home Meds: 1. Januvia 100 mg oral tab 1 tab once daily Has not started yet 2. Flovent 100mcg diskus Inhl twice a day Has not started yet 3. Motrin Oral 600 mg three times a day 4. alprazolam 0.25 mg Oral TbDL [id number] as needed 5. Paxil 10 mg Oral tab 1 tab once daily 6. Norvasc 10 mg Oral tab 1 tab once daily 7. Ventolin HFA 90 mcg/actuation Nebulizer HFAA 2 puffs every 4-6 hours 8. lisinopril-hydrochlorothiazide 20-25 mg oral tab 1 tab once daily - PMHx: Anxiety; Depression; Diabetes - IDDM: uncontrolled; Hypertension; - PSHx: none; - Social history: Smoking status: Patient uses tobacco products, light tobacco smoker. No barriers to communication noted, The patient speaks fluent Telugu, Speaks appropriately for age. - Family history: Not pertinent. - : The pt / caregiver states he / she is not on anticoagulants. Home medication list is obtained from the patient. - Exposure Risk Screening:: None identified. Vital Signs: 03/22 22:59 BP 143 / 79; Pulse 97; Resp 18 S; Temp 99.6(O); Pulse Ox 98% on R/A; Weight 113.4 kg / gr2 250 lbs (R); Height 6 ft. 0 in. (182.88 cm) (R); Pain 2/10; 23:04 Pulse 98 MON; Pulse Ox 97% ; mlc 23:04 BP 143 / 84 (auto/); mlc 23:39 BP 127 / 58 (auto/); mlc 23:40 Pulse 94 MON; Pulse Ox 96% ; mlc 23:45 BP 143 / 78 (auto/); mlc 23:46 Pulse 92 MON; Pulse Ox 95% ; mlc 03/23 00:00 BP 143 / 64 (auto/); mlc 00:01 Pulse 94 MON; Pulse Ox 96% ; mlc 00:15 BP 153 / 82 (auto/); mlc 00:16 Pulse 98 MON; Pulse Ox 95% ; mlc 00:30 Pulse 92 MON; Pulse Ox 96% ; mlc 00:32 BP 138 / 63 (auto/); mlc 00:45 BP 123 / 67 (auto/); mlc 00:46 Pulse 92 MON; Pulse Ox 100% ; mlc 01:00 BP 129 / 63 (auto/); mlc 01:01 Pulse 94 MON; Pulse Ox 93% ; mlc 01:15 BP 139 / 72 (auto/); mlc 01:16 Pulse 96 MON; Pulse Ox 91% ; mlc 01:30 BP 138 / 67 (auto/); mlc 01:31 Pulse 98 MON; Pulse Ox 98% ; mlc 01:45 BP 143 / 71 (auto/); mlc 01:46 Pulse 98 MON; Pulse Ox 98% ; mlc 02:00 BP 118 / 49 (auto/); mlc 02:00 Pulse 94 MON; Pulse Ox 97% ; mlc 02:08 BP 112 / 52; Pulse 86; Resp 18; Temp 98.3(O); Pulse Ox 100% on R/A; Pain 8/10; luis fernando 03/22 22:59 Body Mass Index 33.91 (113.40 kg, 182.88 cm) gr2 MDM: 03/22 23:37 Financial registration complete. pm4 23:38 [facility] Payment Agreement was scanned into [employer] and attached to record. pm4 03/23 00:19 CT Head Without Contrast Ordered. EDMS 00:21 Chest, 2 View (pa\E\lat) Ordered. EDMS 00:22 Decadron - Dexamethasone Sodium Phosphate 10 mg IM once ordered. cs11 00:22 Albuterol-Ipratropium 3 ml Inhalation once ordered. cs11 00:22 Call Respiratory ordered. cs11 00:22 Call Respiratory complete. luis fernando 12:36 T-Sheet-- Draft Copy was scanned into [employer] and attached to record. gb 03/24 20:09 ED course: luis enrique ramires faxed formal report of ct head for fu mlg. ml Administered Medications: 03/23 00:33 Drug: Decadron - Dexamethasone Sodium Phosphate 10 mg [dexamethasone 4 mg/mL injection mlc solution (2.5 mL)] Route: IM; Site: left vastus lateralis; 00:45 Drug: Albuterol-Ipratropium 3 ml [ipratropium-albuterol 0.5 mg-3 mg(2.5 mg base)/3 mL jc3 nebulization soln (3 mL)] Route: Inhalation; Signatures: Dispatcher [employer] EDMS Dafne Cardona MD MD Rakel Rdz, Reg Reg gb Berenice Banerjee RN RN jo3 Daiana Umanzor, IT ARCHITECTURE CONSULTANT IT ARCHITECTURE CONSULTANT luis fernando Audie Rocha, DO DO cs11 Nargis Kraft RN RN [facility] Luis Eduardo Joseph, Reg Reg pm4 Sumit Reynolds3 The chart was reviewed and I authenticate all verbal orders and agree with the evaluation and treatment provided.Attachments: 03/22 23:38 [facility] Payment Agreement pm4 03/23 12:36 T-Sheet-- Draft Copy gb Chart Complete MTDD
--- NOTE | 2016-03-25 03:15 | EDDOCDS ---
Physician Documentation [facility] Name: Jose C Pugh Age: 40 yrs Sex: Male : 1975 Arrival Date: 03/22/2016 Time: 22:56 Bed 11 Private MD: Luis Enrique Ramires Disposition: 03/23/16 02:04 Discharged to Home/Self Care. Impression: Acute bronchitis. - Condition is Stable. - Prescriptions for Prednisone 20 mg Oral Tablet - take 3 tablet by ORAL route once daily for 5 days; 15 tablet. Zithromax Z- Antonio 250 mg Oral Tablet - take 1 tablet by ORAL route as directed for 5 days Day 1- take two tablets once. Day 2, 3, 4 , 5 take one tablet once daily.; 6 tablet. - Medication Reconciliation, Local Pharmacy Hours, Work Release Form - 1 day form. - Follow up: Luis Enrique Ramires; When: Call to arrange an appointment; Reason: Recheck today's complaints. - Problem is an ongoing problem. - Symptoms have improved. Historical: - Allergies: IODINEIODINE CONTAINING; Tramadol HCl; - Home Meds: 1. Januvia 100 mg oral tab 1 tab once daily Has not started yet 2. Flovent 100mcg diskus Inhl twice a day Has not started yet 3. Motrin Oral 600 mg three times a day 4. alprazolam 0.25 mg Oral TbDL [id number] as needed 5. Paxil 10 mg Oral tab 1 tab once daily 6. Norvasc 10 mg Oral tab 1 tab once daily 7. Ventolin HFA 90 mcg/actuation Nebulizer HFAA 2 puffs every 4-6 hours 8. lisinopril-hydrochlorothiazide 20-25 mg oral tab 1 tab once daily - PMHx: Anxiety; Depression; Diabetes - IDDM: uncontrolled; Hypertension; - PSHx: none; - Social history: Smoking status: Patient uses tobacco products, light tobacco smoker. No barriers to communication noted, The patient speaks fluent Tajik, Speaks appropriately for age. - Family history: Not pertinent. - : The pt / caregiver states he / she is not on anticoagulants. Home medication list is obtained from the patient. - Exposure Risk Screening:: None identified. Vital Signs: 03/22 22:59 BP 143 / 79; Pulse 97; Resp 18 S; Temp 99.6(O); Pulse Ox 98% on R/A; Weight 113.4 kg / gr2 250 lbs (R); Height 6 ft. 0 in. (182.88 cm) (R); Pain 2/10; 23:04 Pulse 98 MON; Pulse Ox 97% ; mlc 23:04 BP 143 / 84 (auto/); mlc 23:39 BP 127 / 58 (auto/); mlc 23:40 Pulse 94 MON; Pulse Ox 96% ; mlc 23:45 BP 143 / 78 (auto/); mlc 23:46 Pulse 92 MON; Pulse Ox 95% ; mlc 03/23 00:00 BP 143 / 64 (auto/); mlc 00:01 Pulse 94 MON; Pulse Ox 96% ; mlc 00:15 BP 153 / 82 (auto/); mlc 00:16 Pulse 98 MON; Pulse Ox 95% ; mlc 00:30 Pulse 92 MON; Pulse Ox 96% ; mlc 00:32 BP 138 / 63 (auto/); mlc 00:45 BP 123 / 67 (auto/); mlc 00:46 Pulse 92 MON; Pulse Ox 100% ; mlc 01:00 BP 129 / 63 (auto/); mlc 01:01 Pulse 94 MON; Pulse Ox 93% ; mlc 01:15 BP 139 / 72 (auto/); mlc 01:16 Pulse 96 MON; Pulse Ox 91% ; mlc 01:30 BP 138 / 67 (auto/); mlc 01:31 Pulse 98 MON; Pulse Ox 98% ; mlc 01:45 BP 143 / 71 (auto/); mlc 01:46 Pulse 98 MON; Pulse Ox 98% ; mlc 02:00 BP 118 / 49 (auto/); mlc 02:00 Pulse 94 MON; Pulse Ox 97% ; mlc 02:08 BP 112 / 52; Pulse 86; Resp 18; Temp 98.3(O); Pulse Ox 100% on R/A; Pain 8/10; luis fernando 03/22 22:59 Body Mass Index 33.91 (113.40 kg, 182.88 cm) gr2 MDM: 03/22 23:37 Financial registration complete. pm4 23:38 [facility] Payment Agreement was scanned into [employer] and attached to record. pm4 03/23 00:19 CT Head Without Contrast Ordered. EDMS 00:21 Chest, 2 View (pa\E\lat) Ordered. EDMS 00:22 Decadron - Dexamethasone Sodium Phosphate 10 mg IM once ordered. cs11 00:22 Albuterol-Ipratropium 3 ml Inhalation once ordered. cs11 00:22 Call Respiratory ordered. cs11 00:22 Call Respiratory complete. luis fernando 12:36 T-Sheet-- Draft Copy was scanned into [employer] and attached to record. gb 03/24 20:09 ED course: luis enrique ramires faxed formal report of ct head for fu mlg. ml Administered Medications: 03/23 00:33 Drug: Decadron - Dexamethasone Sodium Phosphate 10 mg [dexamethasone 4 mg/mL injection mlc solution (2.5 mL)] Route: IM; Site: left vastus lateralis; 00:45 Drug: Albuterol-Ipratropium 3 ml [ipratropium-albuterol 0.5 mg-3 mg(2.5 mg base)/3 mL jc3 nebulization soln (3 mL)] Route: Inhalation; Signatures: Dispatcher [employer] EDMS Dafne Cardona MD MD Rakel Rdz, Reg Reg gb Berenice Banerjee RN RN jo3 Daiana Umanzor, WOOD HEEL BACK LINER WOOD HEEL BACK LINER luis fernando Audie Rocha, DO DO cs11 Nargis Kraft RN RN [facility] [place] Luis Eduardo Joseph, Reg Reg pm4 Sumit Reynolds3 The chart was reviewed and I authenticate all verbal orders and agree with the evaluation and treatment provided.Attachments: 03/22 23:38 [facility] Payment Agreement pm4 03/23 12:36 T-Sheet-- Draft Copy gb Chart Complete MTDD
== END 2016-03-23 02:15 | disposition home or self-care (01) ==
LOC: M ED 22:56
DX: J20.9 Acute bronchitis, unspecified (principal); F41.9 Anxiety disorder, unspecified; F32.9 Major depressive disorder, single episode, unspecified; E10.9 Type 1 diabetes mellitus without complications; I10 Essential (primary) hypertension; F17.210 Nicotine dependence, cigarettes, uncomplicated; Z79.899 Other long term (current) drug therapy; Z88.5 Allergy status to narcotic agent; Z88.8 Allergy status to other drugs, medicaments and biological substances
CPT/HCPCS: 70450; 71020; 94640; 96372; 99284; J1100

== ENCOUNTER → 2016-05-19 | Outpatient (CLI) | payer OTHER ==
[2016-05-19 12:53] LABS: BASO % 0.6 % (0.0-1.0); EOS # 0.4 K/mm3 (0.0-0.50); EOS % 6.9 % (0.0-3.0); LYMPH # 2.7 K/mm3 (1.5-4.5); LYMPH % 44.5 % (24.0-44.0); MEAN CORPUSCULAR HEMOGLOBIN 31.9 pg (27.0-33.0); MEAN CORPUSCULAR HGB CONC 33.2 g/dl (32.0-36.5); MEAN CORPUSCULAR VOLUME 95.9 fl (80.0-96.0); MONO # 0.4 K/mm3 (0.0-0.8); MONO % 7.7 % (0.0-5.0); NEUTROPHILS # 2.2 K/mm3 (1.8-7.7); NEUTROPHILS % 38.8 % (36.0-66.0); RED CELL DISTRIBUTION WIDTH 12.5 % (11.5-14.5); WHITE BLOOD COUNT 5.8 K/mm3 (4.0-10.0)
[2016-05-19 13:35] LABS: ALBUMIN 3.3 GM/DL (3.2-5.2); ALBUMIN/GLOBULIN RATIO 1.03 (1.00-1.93); ALKALINE PHOSPHATASE 53 U/L (45-117); ALT/SGPT 43 U/L (12-78); ANION GAP 8 MEQ/L (8-16); AST/SGOT 23 U/L (15-37); BILIRUBIN,TOTAL 0.4 MG/DL (0.2-1.0); BLOOD UREA NITROGEN 14 MG/DL (7-18); CALCIUM LEVEL 8.6 MG/DL (8.5-10.1); CARBON DIOXIDE LEVEL 26 MEQ/L (21-32); CHLORIDE LEVEL 106 MEQ/L (98-107); CHOLESTEROL LEVEL 267 MG/DL (<200); CREATININE FOR GFR 1.05 MG/DL (0.70-1.30); GLOMERULAR FILTRATION RATE > 60.0 (>60); GLUCOSE, FASTING 172 MG/DL (70-105); POTASSIUM SERUM 4.2 MEQ/L (3.5-5.1); SODIUM LEVEL 140 MEQ/L (136-145); TOTAL PROTEIN 6.5 GM/DL (6.4-8.2); TRIGLYCERIDES LEVEL 877 MG/DL (<150)
== END ==
LOC: M WUC 08:50
PROVIDERS: ATTEND Physician Assistant Medical
DX: E11.9 Type 2 diabetes mellitus without complications (principal)

== ENCOUNTER → 2016-07-16 | Outpatient (CLI) | payer OTHER ==
[~2016-07-16] MED LIST changes: -CLAR500T3 PO; +[UNRECOGNIZED DRUG - CODE] PO
[2016-07-16 10:47] LABS: BASO # 0.1 K/mm3 (0.0-0.2); BASO % 1.1 % (0.0-1.0); EOS # 0.6 K/mm3 (0.0-0.50); EOS % 10.5 % (0.0-3.0); LYMPH # 2.8 K/mm3 (1.5-4.5); LYMPH % 44.1 % (24.0-44.0); MEAN CORPUSCULAR HEMOGLOBIN 32.2 pg (27.0-33.0); MEAN CORPUSCULAR HGB CONC 34.1 g/dl (32.0-36.5); MEAN CORPUSCULAR VOLUME 94.3 fl (80.0-96.0); MONO # 0.4 K/mm3 (0.0-0.8); MONO % 6.2 % (0.0-5.0); NEUTROPHILS # 2.2 K/mm3 (1.8-7.7); NEUTROPHILS % 36.3 % (36.0-66.0); RED CELL DISTRIBUTION WIDTH 13.3 % (11.5-14.5); WHITE BLOOD COUNT 6.1 K/mm3 (4.0-10.0)
[2016-07-16 10:53] LABS: ALBUMIN 3.6 GM/DL (3.2-5.2); ALBUMIN/GLOBULIN RATIO 1.03 (1.00-1.93); ALKALINE PHOSPHATASE 64 U/L (45-117); ALT/SGPT 47 U/L (12-78); ANION GAP 8 MEQ/L (8-16); AST/SGOT 23 U/L (15-37); BILIRUBIN,TOTAL 0.5 MG/DL (0.2-1.0); BLOOD UREA NITROGEN 16 MG/DL (7-18); CALCIUM LEVEL 8.6 MG/DL (8.5-10.1); CARBON DIOXIDE LEVEL 26 MEQ/L (21-32); CHLORIDE LEVEL 105 MEQ/L (98-107); CHOLESTEROL LEVEL 302 MG/DL (<200); CREATININE FOR GFR 1.28 MG/DL (0.70-1.30); GLOMERULAR FILTRATION RATE > 60.0 (>60); GLUCOSE, FASTING 197 MG/DL (70-105); POTASSIUM SERUM 4.4 MEQ/L (3.5-5.1); SODIUM LEVEL 139 MEQ/L (136-145); TOTAL PROTEIN 7.1 GM/DL (6.4-8.2); TRIGLYCERIDES LEVEL 892 MG/DL (<150)
== END ==
LOC: M WUC 08:53
PROVIDERS: ATTEND Physician Assistant Medical
DX: E11.9 Type 2 diabetes mellitus without complications (principal)

== ENCOUNTER 2016-09-21 14:38 | Emergency (ER) | payer OTHER ==
[~2016-09-21] VITALS: Ht 182.9 cm; Wt 103.9 kg
[2016-09-21] MEDS ORDERED: JARD1TAB3 PO (14:53)
[2016-09-21] MEDS ORDERED: LISI10TA4 PO (14:53)
[2016-09-21] MEDS ORDERED: ELAV25TA PO (14:53)
[2016-09-21] MEDS ORDERED: BUSP10TA PO (14:53)
[2016-09-21] MEDS ORDERED: LIPI20TA PO (14:53)
[2016-09-21] MEDS ORDERED: GI COCKTAIL 50ML BTL(HYOSCYAMINE/MAALOX/LIDOCAINE VISCOUS)(1:3:1) PO ONE (15:45)
[2016-09-21 16:09] LABS: BASO % 0.3 % (0.0-1.0); EOS # 0.1 K/mm3 (0.0-0.50); EOS % 0.7 % (0.0-3.0); LARGE UNSTAINED CELL # 0.1 K/mm3 (0.0-0.4); LYMPH # 1.6 K/mm3 (1.5-4.5); LYMPH % 17.7 % (24.0-44.0); MEAN CORPUSCULAR HEMOGLOBIN 31.8 pg (27.0-33.0); MEAN CORPUSCULAR HGB CONC 33.6 g/dl (32.0-36.5); MEAN CORPUSCULAR VOLUME 94.8 fl (80.0-96.0); MONO # 0.5 K/mm3 (0.0-0.8); MONO % 5.4 % (0.0-5.0); NEUTROPHILS # 6.3 K/mm3 (1.8-7.7); NEUTROPHILS % 74.9 % (36.0-66.0); PLATELET COUNT, AUTOMATED 368 k/mm3 (150-450); RED CELL DISTRIBUTION WIDTH 13.4 % (11.5-14.5); WHITE BLOOD COUNT 8.4 K/mm3 (4.0-10.0)
[2016-09-21 16:11] LABS: INR 0.97
[2016-09-21 16:15] LABS: ALBUMIN 3.8 GM/DL (3.2-5.2); ALBUMIN/GLOBULIN RATIO 1.03 (1.00-1.93); ALKALINE PHOSPHATASE 63 U/L (45-117); ALT/SGPT 46 U/L (12-78); ANION GAP 8 MEQ/L (8-16); AST/SGOT 23 U/L (15-37); BILIRUBIN,DIRECT < 0.1 MG/DL (0.0-0.2); BILIRUBIN,TOTAL 0.4 MG/DL (0.2-1.0); BLOOD UREA NITROGEN 18 MG/DL (7-18); CARBON DIOXIDE LEVEL 25 MEQ/L (21-32); CHLORIDE LEVEL 106 MEQ/L (98-107); CREATININE FOR GFR 1.34 MG/DL (0.70-1.30); GLOMERULAR FILTRATION RATE > 60.0 (>60); GLUCOSE, FASTING 137 MG/DL (70-105); POTASSIUM SERUM 3.8 MEQ/L (3.5-5.1); SODIUM LEVEL 139 MEQ/L (136-145); TOTAL PROTEIN 7.5 GM/DL (6.4-8.2)
[2016-09-21] MEDS ORDERED: ZOFR4TAB3 PO (17:38)
[2016-09-21] MEDS ORDERED: NORCOTAB PO (17:38)
--- NOTE | 2016-09-21 17:40 | REP ---
CT ABDOMEN AND PELVIS, WITHOUT CONTRAST: CT abdomen and pelvis is performed without oral or IV contrast, with sagittal and coronal reconstruction images. COMPARISON: 08/28/2012 Visualized lung bases are clear. There is diffuse fatty infiltration of the liver with no gross mass. Spleen, adrenals, pancreas and kidneys are grossly unremarkable. There is no hydroureteronephrosis. There is no abdominal aortic aneurysm. There is no adenopathy and there is no free air or free fluid. There is no bowel wall thickening. There is no evidence of appendicitis. The urinary bladder is unremarkable. IMPRESSION: Diffuse fatty infiltration of the liver. Otherwise unremarkable noncontrast CT abdomen and pelvis. Signed by Mina Jasso MD 09/22/2016 03:26 P
[2016-09-21 18:11] VITALS: BP 141/77
--- NOTE | 2016-09-22 09:02 | ECGEPIP ---
Stationary ECG Study [facility] - ED Test Date: 2016-09-21 Pat Name: TOM HYLTON Department: Room: - Gender: M Safety Manager: : 1975 Requested By: LU ALMANZA Order Number: [id number] Reading MD: Yarely Bender Measurements Intervals Spencer Rate: 80 P: 59 NV: 187 QRS: 45 QRSD: 97 T: 2 QT: 367 QTc: 424 Interpretive Statements SINUS RHYTHM NONSPECIFIC T-WAVE ABNORMALITY Electronically Signed On 09-22-2016 9:01:40 EDT by Yarely Bender
== END 2016-09-21 18:17 | disposition home or self-care (01) ==
LOC: M ED 14:38
DX: K85.90 Acute pancreatitis without necrosis or infection, unspecified (principal); I10 Essential (primary) hypertension; E78.5 Hyperlipidemia, unspecified; F17.200 Nicotine dependence, unspecified, uncomplicated; K76.0 Fatty (change of) liver, not elsewhere classified; Z79.82 Long term (current) use of aspirin; Z79.899 Other long term (current) drug therapy; Z91.89 Other specified personal risk factors, not elsewhere classified

== ENCOUNTER → 2016-10-28 | Outpatient (CLI) | payer OTHER ==
[~2016-10-28] MED LIST changes: +ALPR0.25 PO; +AMIT50TA PO; +ATOR80TA59 PO; +BUSP10TA PO; +ELAV25TA PO; +JARD1TAB3 PO; +LIPI20TA PO; +LISI10TA4 PO; +LISI40TAB PO; +LYRI150C PO; +NORCOTAB PO; +TRUL10IN SC; +VITA1CAP40 PO; +ZOFR4TAB3 PO
[2016-10-28 20:04] LABS: BASO # 0.1 K/mm3 (0.0-0.2); EOS # 0.5 K/mm3 (0.0-0.50); EOS % 8.8 % (0.0-3.0); LYMPH # 2.4 K/mm3 (1.5-4.5); LYMPH % 40.8 % (24.0-44.0); MEAN CORPUSCULAR HEMOGLOBIN 31.9 pg (27.0-33.0); MEAN CORPUSCULAR HGB CONC 33.3 g/dl (32.0-36.5); MEAN CORPUSCULAR VOLUME 95.6 fl (80.0-96.0); MONO # 0.4 K/mm3 (0.0-0.8); MONO % 6.3 % (0.0-5.0); NEUTROPHILS # 2.4 K/mm3 (1.8-7.7); NEUTROPHILS % 41.1 % (36.0-66.0); RED CELL DISTRIBUTION WIDTH 12.9 % (11.5-14.5); WHITE BLOOD COUNT 5.8 K/mm3 (4.0-10.0)
[2016-10-28 20:11] LABS: ALBUMIN 3.6 GM/DL (3.2-5.2); ALBUMIN/GLOBULIN RATIO 1.09 (1.00-1.93); ALKALINE PHOSPHATASE 67 U/L (45-117); ALT/SGPT 51 U/L (12-78); ANION GAP 9 MEQ/L (8-16); AST/SGOT 23 U/L (15-37); BILIRUBIN,TOTAL 0.5 MG/DL (0.2-1.0); BLOOD UREA NITROGEN 10 MG/DL (7-18); CARBON DIOXIDE LEVEL 29 MEQ/L (21-32); CHLORIDE LEVEL 104 MEQ/L (98-107); CHOLESTEROL LEVEL 211 MG/DL (<200); CREATININE FOR GFR 1.25 MG/DL (0.70-1.30); GLOMERULAR FILTRATION RATE > 60.0 (>60); GLUCOSE, FASTING 125 MG/DL (70-105); POTASSIUM SERUM 4.2 MEQ/L (3.5-5.1); SODIUM LEVEL 142 MEQ/L (136-145); TOTAL PROTEIN 6.9 GM/DL (6.4-8.2); TRIGLYCERIDES LEVEL 247 MG/DL (<150)
== END ==
LOC: M WUC 15:38
PROVIDERS: ATTEND Physician Assistant Medical
DX: E11.9 Type 2 diabetes mellitus without complications (principal); K86.89 Other specified diseases of pancreas

== ENCOUNTER 2016-12-08 17:45 | Emergency (ER) | payer OTHER ==
[~2016-12-08] VITALS: Ht 182.9 cm; Wt 109.3 kg
[~2016-12-08 17:45] MED LIST changes: -ALPR0.25 PO; -AMIT50TA PO; -ATOR80TA59 PO; -LISI40TAB PO; -LYRI150C PO; -TRUL10IN SC; -VITA1CAP40 PO
[2016-12-08 17:47] VITALS: BP 162/105
[2016-12-09] MEDS ORDERED: ALPR0.25 PO (12:06)
[2016-12-09] MEDS ORDERED: VITA1CAP40 PO (12:06)
[2016-12-09] MEDS ORDERED: LYRI150C PO (12:06)
== END 2016-12-08 19:50 | disposition left against medical advice (07) ==
LOC: M ED 17:45
DX: R10.9 Unspecified abdominal pain (principal); Z53.21 Procedure and treatment not carried out due to patient leaving prior to being seen by health care provider

== ENCOUNTER 2016-12-09 11:52 | Emergency (ER) | payer OTHER ==
[~2016-12-09] VITALS: Ht 182.9 cm; Wt 108.0 kg
[2016-12-09] MEDS ORDERED: LYRI150C PO (12:06)
[2016-12-09] MEDS ORDERED: ALPR0.25 PO (12:06)
[2016-12-09] MEDS ORDERED: VITA1CAP40 PO (12:06)
[2016-12-09] MEDS ORDERED: ONDANSETRON 4MG/2ML VIAL (J2405) IV ONE (12:30)
[2016-12-09] MEDS ORDERED: NS 1,000 ML IV ONE ×2 (12:30→14:15)
[2016-12-09] MEDS: MORPHINE 4 MG/ML 1ML SYRINGE IV PRN ×2 (12:34→13:25)
[2016-12-09 12:59] LABS: BASO # 0.1 10^3/uL (0.0-0.2); BASO % 0.8 % (0.0-1.0); EOS # 0.5 10^3/uL (0.0-0.50); EOS % 7.4 % (0.0-3.0); IMMATURE GRANULOCYTE % 0.2 % (0-0); LYMPH # 2.2 10^3/uL (1.5-4.5); MEAN CORPUSCULAR HEMOGLOBIN 31.1 pg (27.0-33.0); MEAN CORPUSCULAR HGB CONC 33.7 g/dl (32.0-36.5); MEAN CORPUSCULAR VOLUME 92.3 fl (80.0-96.0); MONO # 0.6 10^3/uL (0.0-0.8); MONO % 9.9 % (0.0-5.0); NEUTROPHILS % 47.7 % (36.0-66.0); PLATELET COUNT, AUTOMATED 361 10^3/uL (150-450); RED CELL DISTRIBUTION WIDTH 11.9 % (11.5-14.5); WHITE BLOOD COUNT 6.4 10^3/uL (4.0-10.0)
[2016-12-09 13:12] LABS: ALBUMIN 3.4 GM/DL (3.2-5.2); ALBUMIN/GLOBULIN RATIO 0.87 (1.00-1.93); ALKALINE PHOSPHATASE 65 U/L (45-117); ALT/SGPT 50 U/L (12-78); AMYLASE 197 U/L (25-115); ANION GAP 6 MEQ/L (8-16); AST/SGOT 17 U/L (15-37); BILIRUBIN,DIRECT < 0.1 MG/DL (0.0-0.2); BILIRUBIN,TOTAL 0.4 MG/DL (0.2-1.0); BLOOD UREA NITROGEN 15 MG/DL (7-18); CALCIUM LEVEL 8.8 MG/DL (8.5-10.1); CARBON DIOXIDE LEVEL 29 MEQ/L (21-32); CHLORIDE LEVEL 104 MEQ/L (98-107); CREATININE FOR GFR 1.08 MG/DL (0.70-1.30); GLOMERULAR FILTRATION RATE > 60.0 (>60); GLUCOSE, FASTING 241 MG/DL (70-105); POTASSIUM SERUM 3.9 MEQ/L (3.5-5.1); SODIUM LEVEL 139 MEQ/L (136-145); TOTAL PROTEIN 7.3 GM/DL (6.4-8.2)
--- NOTE | 2016-12-09 13:12 | REP ---
Abdominal right upper quadrant ultrasound: There is no cholelithiasis, gallbladder wall thickening or pericholecystic fluid. There is no intrahepatic or extrahepatic biliary duct dilatation. The common duct measures 3.7 mm in diameter per The hepatic parenchyma is homogeneous but echogenic compatible with hepato steatosis. No hepatic masses are identified. The visualized portion of the pancreatic head is unremarkable. The pancreatic body and tail are obscured by bowel gas. There is no right renal calculus, hydronephrosis, mass or cyst. The right kidney is normal size measuring 14.0 cm craniocaudad length. Impression: Hepatosteatosis. Otherwise, negative abdominal right upper quadrant ultrasound. Signed by Mina Omalley MD 12/09/2016 01:04 P
[2016-12-09 13:20] VITALS: BP 159/86
[2016-12-09] MEDS ORDERED: ISOVUE-370 76% 100ML VIAL (Q9967) As Ordered ONE (14:28)
[2016-12-09] MEDS ORDERED: HYDROmorphone HCL 1 MG/ML SYRINGE (J1170) IV PRN (14:30)
--- NOTE | 2016-12-09 15:25 | REP ---
CT abdomen and pelvis with IV contrast: History: Right upper quadrant pain. Pancreatitis. CT comparison study September 21, 2016. CT contrast dose: 100 ml of Isovue [address] findings: Digital preliminary seater assembler radiograph shows an unremarkable bowel gas pattern. The lung bases are clear. There is moderate diffuse fatty infiltration of the liver again seen. The craniocaudal imaging span of the liver is 18.8 cm, which is mildly enlarged. No focal liver lesion is seen. Spleen is at the upper range of normal measuring 12.5 cm in greatest diameter. No focal splenic lesion is seen. Gallbladder is unremarkable. No pancreatic morphologic abnormality is seen. No cyst or peripancreatic edema is observed. No adrenal lesion is seen on either side. Kidneys enhance symmetrically are morphologically intact. A normal appendix is seen in the right lower quadrant. Small and large intestinal bowel loops are normal in the abdomen and pelvis. No retroperitoneal mass or adenopathy is seen. Prostate, seminal vesicles, and urinary bladder are unremarkable. Impression: No acute intra-abdominal abnormality. Moderate diffuse fatty infiltration of the liver is seen. Normal appendix is noted. The pancreas is morphologically normal. Signed by Garret Cullen MD 12/09/2016 05:01 P
[2016-12-10] MEDS ORDERED: ATOR80TA59 PO (09:43)
[2016-12-10] MEDS ORDERED: AMIT50TA PO (09:43)
[2016-12-10] MEDS ORDERED: TRUL10IN SC (09:43)
[2016-12-10] MEDS ORDERED: LISI40TAB PO (09:43)
[2016-12-10] MEDS ORDERED: NORCOTAB PO (10:51)
[2016-12-10] MEDS ORDERED: ZOFR4TAB3 PO (10:51)
== END 2016-12-09 16:40 | disposition left against medical advice (07) ==
LOC: M ED 11:52
DX: K85.90 Acute pancreatitis without necrosis or infection, unspecified (principal); E11.65 Type 2 diabetes mellitus with hyperglycemia; F17.200 Nicotine dependence, unspecified, uncomplicated; E78.00 Pure hypercholesterolemia, unspecified; I10 Essential (primary) hypertension; J45.909 Unspecified asthma, uncomplicated; F32.9 Major depressive disorder, single episode, unspecified; Z86.14 Personal history of Methicillin resistant Staphylococcus aureus infection; Z79.899 Other long term (current) drug therapy; Z91.89 Other specified personal risk factors, not elsewhere classified
CPT/HCPCS: 74177; 76705; 80048; 80076; 81001; 82150; 83690; 85025; 96374; 96375; 99283; J1170; J2405; Q9967

== ENCOUNTER 2016-12-10 08:57 | Emergency (ER) | payer OTHER ==
[~2016-12-10] VITALS: Ht 182.9 cm; Wt 110.3 kg
[~2016-12-10 08:57] MED LIST changes: +ALPR0.25 PO; +LYRI150C PO; +VITA1CAP40 PO
[2016-12-10] MEDS ORDERED: NS 1,000 ML IV ONE (09:15)
[2016-12-10] MEDS ORDERED: HYDROmorphone HCL 1 MG/ML SYRINGE (J1170) IV PRN (09:15)
[2016-12-10] MEDS ORDERED: ONDANSETRON 4MG/2ML VIAL (J2405) IV ONE (09:15)
[2016-12-10 09:37] LABS: BASO % 0.5 % (0.0-1.0); EOS # 0.4 10^3/uL (0.0-0.50); EOS % 5.1 % (0.0-3.0); IMMATURE GRANULOCYTE % 0.2 % (0-0); LYMPH # 2.3 10^3/uL (1.5-4.5); LYMPH % 25.9 % (24.0-44.0); MEAN CORPUSCULAR HEMOGLOBIN 31.4 pg (27.0-33.0); MEAN CORPUSCULAR HGB CONC 34.3 g/dl (32.0-36.5); MEAN CORPUSCULAR VOLUME 91.6 fl (80.0-96.0); MONO # 0.6 10^3/uL (0.0-0.8); MONO % 6.8 % (0.0-5.0); NEUTROPHILS # 5.4 10^3/uL (1.8-7.7); NEUTROPHILS % 61.5 % (36.0-66.0); PLATELET COUNT, AUTOMATED 358 10^3/uL (150-450); RED CELL DISTRIBUTION WIDTH 11.9 % (11.5-14.5); WHITE BLOOD COUNT 8.7 10^3/uL (4.0-10.0)
[2016-12-10] MEDS ORDERED: TRUL10IN SC (09:43)
[2016-12-10] MEDS ORDERED: ATOR80TA59 PO (09:43)
[2016-12-10] MEDS ORDERED: LISI40TAB PO (09:43)
[2016-12-10] MEDS ORDERED: AMIT50TA PO (09:43)
[2016-12-10 10:18] LABS: ALBUMIN 3.4 GM/DL (3.2-5.2); ALKALINE PHOSPHATASE 61 U/L (45-117); ALT/SGPT 47 U/L (12-78); AMYLASE 83 U/L (25-115); ANION GAP 8 MEQ/L (8-16); AST/SGOT 16 U/L (15-37); BILIRUBIN,DIRECT 0.1 MG/DL (0.0-0.2); BILIRUBIN,TOTAL 0.6 MG/DL (0.2-1.0); BLOOD UREA NITROGEN 10 MG/DL (7-18); CARBON DIOXIDE LEVEL 27 MEQ/L (21-32); CHLORIDE LEVEL 101 MEQ/L (98-107); CREATININE FOR GFR 1.04 MG/DL (0.70-1.30); GLOMERULAR FILTRATION RATE > 60.0 (>60); GLUCOSE, FASTING 226 MG/DL (70-105); POTASSIUM SERUM 3.9 MEQ/L (3.5-5.1); SODIUM LEVEL 136 MEQ/L (136-145); TOTAL PROTEIN 6.8 GM/DL (6.4-8.2); TRIGLYCERIDES LEVEL 326 MG/DL (<150)
[2016-12-10] MEDS ORDERED: ZOFR4TAB3 PO (10:51)
[2016-12-10] MEDS ORDERED: NORCOTAB PO (10:51)
[2016-12-10 10:58] VITALS: BP 164/88
== END 2016-12-10 10:59 | disposition home or self-care (01) ==
LOC: M ED 08:57
DX: K85.91 Acute pancreatitis with uninfected necrosis, unspecified (principal); F17.200 Nicotine dependence, unspecified, uncomplicated; Z79.899 Other long term (current) drug therapy; Z91.89 Other specified personal risk factors, not elsewhere classified
CPT/HCPCS: 80048; 80076; 82150; 83690; 84478; 85025; 96361; 96374; 96375; 99283; J1170; J2405

== ENCOUNTER 2017-02-13 22:39 | Emergency (ER) | payer MEDICAID, OTHER ==
[~2017-02-13] VITALS: Ht 182.9 cm; Wt 106.8 kg
[2017-02-13 22:39] VITALS: BP 172/91
[~2017-02-13 22:39] MED LIST changes: +AMIT50TA PO; +ATOR80TA59 PO; +LISI40TAB PO; +TRUL10IN SC
[2017-02-13] MEDS ORDERED: LIPI80TA PO (22:46)
[2017-02-13] MEDS ORDERED: LIDOCAINE VISCOUS 2% SOLN 15ML UDC MT ONE (23:45)
[2017-02-13] MEDS ORDERED: CLINDAMYCIN 150 MG CAP PO ONE (23:45)
[2017-02-13] MEDS ORDERED: NORCO, ANEXSIA 5/325MG TABLET (HYDROcodone/ACETAMINOPHEN) PO ONE (23:45)
[2017-02-13] MEDS ORDERED: CLEO300C2 PO (23:47)
[2017-02-13] MEDS ORDERED: NORCOTAB PO (23:47)
== END 2017-02-14 00:08 | disposition home or self-care (01) ==
LOC: M ED 22:39
DX: K04.7 Periapical abscess without sinus (principal); K08.89 Other specified disorders of teeth and supporting structures; I10 Essential (primary) hypertension; F17.200 Nicotine dependence, unspecified, uncomplicated; Z79.899 Other long term (current) drug therapy; Z91.89 Other specified personal risk factors, not elsewhere classified

== ENCOUNTER 2017-05-14 16:26 | Emergency (ER) | payer OTHER ==
[2017-05-14 17:29] LABS: HEMATOCRIT 41.9 % (42.0-52.0); HEMOGLOBIN 13.9 g/dl (14.0-18.0); MEAN CORPUSCULAR HEMOGLOBIN 30.7 pg (27.0-33.0); MEAN CORPUSCULAR HGB CONC 33.2 g/dl (32.0-36.5); MEAN CORPUSCULAR VOLUME 92.5 fl (80.0-96.0); PLATELET COUNT, AUTOMATED 423 10^3/uL (150-450); RED BLOOD COUNT 4.53 10^6/uL (4.30-6.10); WHITE BLOOD COUNT 7.5 10^3/uL (4.0-10.0)
[2017-05-14 17:53] LABS: AMPHETAMINES LEVEL URINE NEGATIVE (NEGATIVE); BARBITURATES URINE NEGATIVE (NEGATIVE); BENZODIAZEPINES URINE NEGATIVE (NEGATIVE); CANNABINOIDS URINE NEGATIVE (NEGATIVE); COCAINE METABOLITE URINE POSITIVE (NEGATIVE); METHADONE URINE NEGATIVE (NEGATIVE); OPIATES URINE NEGATIVE (NEGATIVE); PHENCYCLIDINE URINE NEGATIVE (NEGATIVE)
[2017-05-14 18:02] LABS: ALBUMIN 3.7 GM/DL (3.2-5.2); ALBUMIN/GLOBULIN RATIO 1.12 (1.00-1.93); ALKALINE PHOSPHATASE 67 U/L (45-117); ALT/SGPT 55 U/L (12-78); ANION GAP 8 MEQ/L (8-16); AST/SGOT 26 U/L (7-37); BILIRUBIN,DIRECT 0.1 MG/DL (0.0-0.2); BILIRUBIN,TOTAL 0.4 MG/DL (0.2-1.0); BLOOD UREA NITROGEN 14 MG/DL (7-18); CALCIUM LEVEL 8.9 MG/DL (8.5-10.1); CARBON DIOXIDE LEVEL 26 MEQ/L (21-32); CHLORIDE LEVEL 106 MEQ/L (98-107); CREATININE FOR GFR 1.11 MG/DL (0.70-1.30); GLOMERULAR FILTRATION RATE > 60.0 (>60); GLUCOSE, FASTING 166 MG/DL (70-100); POTASSIUM SERUM 4.1 MEQ/L (3.5-5.1); SALICYLATE LEVEL < 1.7 MG/DL (5.0-30.0); SODIUM LEVEL 140 MEQ/L (136-145)
[2017-05-14 18:10] LABS: ACETAMINOPHEN LEVEL < 2.0 UG/ML (10.0-30.0); ETHYL ALCOHOL (ETHANOL) < 0.003 % (0.000-0.010)
== END 2017-05-14 21:05 | disposition home or self-care (01) ==
LOC: M ED 16:26
DX: Z60.9 Problem related to social environment, unspecified (principal); F14.10 Cocaine abuse, uncomplicated; E11.9 Type 2 diabetes mellitus without complications; F33.9 Major depressive disorder, recurrent, unspecified; F10.10 Alcohol abuse, uncomplicated; Z79.899 Other long term (current) drug therapy; Z88.8 Allergy status to other drugs, medicaments and biological substances; F17.210 Nicotine dependence, cigarettes, uncomplicated
CPT/HCPCS: 80320

== ENCOUNTER → 2017-07-08 | Outpatient (CLI) | payer MEDICAID | LOC: M OUTALCOH 12:30 | DX: Z03.89 Encounter for observation for other suspected diseases and conditions ruled out (principal) ==

== ENCOUNTER 2017-10-15 14:41 | Emergency (ER) | payer MEDICAID ==
[2017-10-15 15:22] LABS: KETONE, URINE AUTO RFX NEGATIVE (NEGATIVE); LEUKOCYTE ESTERASE UR AUTO RFX NEGATIVE (NEGATIVE); MUCUS, URINE RFX SMALL (NEGATIVE); NITRITE, URINE AUTO RFX NEGATIVE (NEGATIVE); RBC, URINE AUTO RFX 42 /HPF (0-3); SQUAM EPITHELIAL CELL UR AURFX 0 /HPF (0-6); WBC, URINE AUTO RFX 5 /HPF (0-3)
[2017-10-15] MEDS ORDERED: ACETAMINOPHEN 325 MG TAB As Ordered (15:43)
[2017-10-15] MEDS: ACETAMINOPHEN 325 MG TAB PO (15:45)
[2017-10-15 15:51] LABS: BEDSIDE GLUCOSE 248 MG/DL (70-105)
[2017-10-15 15:55] LABS: VENOUS O2 SATURATION 51.6 % (60.0-80.0); VENOUS PARTIAL PRESSURE CO2 47.7 mmHg (38.0-50.0); VENOUS PARTIAL PRESSURE O2 28.4 mmHg (30.0-50.0); VENOUS STANDARD HCO3 24.3 MEQ/L; VENOUS TOTAL CO2 28.4 MEQ/L (24.0-28.0)
[2017-10-15 15:56] LABS: BASO % 0.2 % (0.0-1.0); EOS # 0.2 10^3/uL (0.0-0.50); EOS % 1.8 % (0.0-3.0); HEMATOCRIT 39.5 % (42.0-52.0); HEMOGLOBIN 13.3 g/dl (13.5-17.5); IMMATURE GRANULOCYTE % 0.4 % (0-3.0); LYMPH # 0.6 10^3/uL (1.5-4.5); LYMPH % 5.3 % (24.0-44.0); MEAN CORPUSCULAR HEMOGLOBIN 31.5 pg (27.0-33.0); MEAN CORPUSCULAR HGB CONC 33.7 g/dl (32.0-36.5); MEAN CORPUSCULAR VOLUME 93.6 fl (80.0-96.0); MONO # 0.2 10^3/uL (0.0-0.8); MONO % 1.9 % (0.0-5.0); NEUTROPHILS # 10.2 10^3/uL (1.8-7.7); NEUTROPHILS % 90.4 % (36.0-66.0); PLATELET COUNT, AUTOMATED 300 10^3/uL (150-450); RED BLOOD COUNT 4.22 10^6/uL (4.30-6.10); WHITE BLOOD COUNT 11.2 10^3/uL (4.0-10.0)
[2017-10-15 16:15] LABS: ALBUMIN 3.3 GM/DL (3.2-5.2); ALBUMIN/GLOBULIN RATIO 0.92 (1.00-1.93); ALKALINE PHOSPHATASE 82 U/L (45-117); ALT/SGPT 35 U/L (12-78); ANION GAP 9 MEQ/L (8-16); AST/SGOT 14 U/L (7-37); BILIRUBIN,TOTAL 0.8 MG/DL (0.2-1.0); BLOOD UREA NITROGEN 14 MG/DL (7-18); CALCIUM LEVEL 8.9 MG/DL (8.5-10.1); CARBON DIOXIDE LEVEL 29 MEQ/L (21-32); CHLORIDE LEVEL 102 MEQ/L (98-107); CREATININE FOR GFR 1.47 MG/DL (0.70-1.30); GLOMERULAR FILTRATION RATE > 60.0 (>60); GLUCOSE, FASTING 234 MG/DL (70-100); LIPASE 300 U/L (73-393); POTASSIUM SERUM 3.8 MEQ/L (3.5-5.1); SODIUM LEVEL 140 MEQ/L (136-145); TOTAL PROTEIN 6.9 GM/DL (6.4-8.2)
[2017-10-15 16:16] LABS: LACTIC ACID SEPSIS PROTOCOL 2.8 MMOL/L (0.4-2.0)
[2017-10-15] MEDS: NS 1,000 ML IV ×2 (16:25→18:04)
[2017-10-15] MEDS: KETOROLAC 30 MG/ML VIAL (J1885) IV (17:13)
[2017-10-15 17:33] LABS: CK-MB VALUE MASS 2.2 NG/ML (<3.6); CPK CREATINE PHOSPHOKINASE 423 U/L (39-308); MB/CK RELATIVE INDEX 0.52 (< OR =4); TROPONIN I < 0.02 NG/ML (< 0.10)
[2017-10-15] MEDS: MORPHINE 4 MG/ML 1ML VIAL/SYRINGE (J2270) IV (18:03)
[2017-10-15] MEDS: CEFDINIR 300 MG CAP (OMNICEF) PO (21:46)
== END 2017-10-15 21:56 | disposition home or self-care (01) ==
LOC: M ED 14:41
DX: R50.9 Fever, unspecified (principal); R10.9 Unspecified abdominal pain; R31.9 Hematuria, unspecified; R51 Headache; E11.9 Type 2 diabetes mellitus without complications; I10 Essential (primary) hypertension; E78.5 Hyperlipidemia, unspecified; J45.909 Unspecified asthma, uncomplicated; Z87.19 Personal history of other diseases of the digestive system; F17.210 Nicotine dependence, cigarettes, uncomplicated; Z79.899 Other long term (current) drug therapy; Z79.84 Long term (current) use of oral hypoglycemic drugs
CPT/HCPCS: J2270

== ENCOUNTER 2017-10-16 06:35 | Inpatient (IN) | payer OTHER, MEDICAID ==
[2017-10-16] MEDS: NS 1,000 ML IV ×3 (07:00→09:41)
[2017-10-16] MEDS: IBUPROFEN 800 MG TAB PO (07:07)
[2017-10-16] MEDS: ACETAMINOPHEN TAB 650MG DOSE (2X325MG) PO (07:07)
[2017-10-16 07:14] LABS: ABG BASE EXCESS -2.1 (-2.0-2.0); ABG HCO3 20.3 MEQ/L (22.0-26.0); ABG PARTIAL PRESSURE CO2 33.6 mmHg (35.0-45.0); ABG STANDARD HCO3 22.6 MEQ/L (22.0-26.0); ABG TOTAL CO2 21.2 MEQ/L (22.0-29.0); ABG pH (ARTERIAL) 7.415 UNITS (7.350-7.450)
[2017-10-16 07:28] LABS: HEMATOCRIT 34.3 % (42.0-52.0); HEMOGLOBIN 11.5 g/dl (13.5-17.5); MEAN CORPUSCULAR HEMOGLOBIN 31.4 pg (27.0-33.0); MEAN CORPUSCULAR VOLUME 93.7 fl (80.0-96.0); RED BLOOD COUNT 3.66 10^6/uL (4.30-6.10)
[2017-10-16 07:29] LABS: MEAN CORPUSCULAR HGB CONC 33.5 g/dl (32.0-36.5); PLATELET COUNT, AUTOMATED 199 10^3/uL (150-450); RED CELL DISTRIBUTION WIDTH 11.9 % (11.5-14.5)
[2017-10-16 07:40] LABS: ADD MANUAL DIFFER YES; DIFF SLIDE NUMBER 109
[2017-10-16 07:41] LABS: ALBUMIN 2.5 GM/DL (3.2-5.2); ALBUMIN/GLOBULIN RATIO 0.69 (1.00-1.93); ALKALINE PHOSPHATASE 89 U/L (45-117); ALT/SGPT 51 U/L (12-78); ANION GAP 11 MEQ/L (8-16); AST/SGOT 32 U/L (7-37); BILIRUBIN,DIRECT 0.3 MG/DL (0.0-0.2); BILIRUBIN,TOTAL 1.1 MG/DL (0.2-1.0); BLOOD UREA NITROGEN 21 MG/DL (7-18); CARBON DIOXIDE LEVEL 24 MEQ/L (21-32); CHLORIDE LEVEL 105 MEQ/L (98-107); CREATININE FOR GFR 1.81 MG/DL (0.70-1.30); GLOMERULAR FILTRATION RATE 53.6 (>60); GLUCOSE, FASTING 212 MG/DL (70-100); LIPASE 340 U/L (73-393); POTASSIUM SERUM 3.4 MEQ/L (3.5-5.1); SODIUM LEVEL 140 MEQ/L (136-145); TOTAL PROTEIN 6.1 GM/DL (6.4-8.2)
[2017-10-16 07:45] LABS: BANDS 6 % (< 11); EOSINOPHILS 2 % (0-5); LYMPHOCYTES 6 % (16-52); METAMYELOCYTES 4 % (0-0); NEUTROPHILS 82 % (35-75); PLATELET ESTIMATE NORMAL (NORMAL)
[2017-10-16 07:45] LABS: LACTIC ACID SEPSIS PROTOCOL 2.6 MMOL/L (0.4-2.0)
[2017-10-16 07:46] LABS: POLYCHROMASIA 1+
[2017-10-16 08:03] LABS: INFLUENZA A AMPLIFICATION NEGATIVE (NEGATIVE); INFLUENZA B AMPLIFICATION NEGATIVE (NEGATIVE)
[2017-10-16] MEDS: PIPERACILLIN/TAZOBACTAM SOD 4.5 GM in D5W MINI-BAG PLUS 50 ML IV (08:03)
[2017-10-16] MEDS: LIDOCAINE 1% MDV 20ML VIAL IM (08:30)
[2017-10-16 08:32] LABS: AMORPHOUS SEDIMENT RFX SMALL (NEGATIVE); KETONE, URINE AUTO RFX NEGATIVE (NEGATIVE); LEUKOCYTE ESTERASE UR AUTO RFX NEGATIVE (NEGATIVE); MUCUS, URINE RFX SMALL (NEGATIVE); NITRITE, URINE AUTO RFX NEGATIVE (NEGATIVE); RBC, URINE AUTO RFX 18 /HPF (0-3); SPECIFIC GRAVITY UR AUTO RFX 1.022 (1.002-1.035); SQUAM EPITHELIAL CELL UR AURFX 3 /HPF (0-6); WBC, URINE AUTO RFX 17 /HPF (0-3)
[2017-10-16] MEDS: cefTRIAXone SOD 2 GM in D5W MINI-BAG PLUS 50 ML IV (09:41)
[2017-10-16] MEDS ORDERED: DEXTROSE 50% 50 ML SYRINGE IV (09:45)
[2017-10-16] MEDS ORDERED: GLUCOSE 4 GM CHEW TABLET PO (09:45)
[2017-10-16] MEDS ORDERED: GLUCAGON FOR INJ 1 MG VIAL (J1610) SC (09:45)
[2017-10-16 09:46] LABS: CSF RBC < 2 10^3/uL (<2)
[2017-10-16 09:47] LABS: APPEARANCE, CSF CLEAR (CLEAR); COLOR, CSF COLORLESS (COLORLESS); CSF DIFF IF INDICATED? NO (NO); CSF TUBE# CELL CNT TUBE 1; CSF WBC 1 /uL (0-10)
[2017-10-16 09:52] LABS: CSF TUBE# GLU TUBE 2; CSF TUBE# TP TUBE 2; GLUCOSE CSF 135 MG/DL (40-75); TOTAL PROTEIN,CSF 49.7 MG/DL (15-45)
[2017-10-16 10:08] LABS: REASON FOR REVIEW WBC/LEUKEMIA/BLAST; SLIDE REVIEW Report; SOURCE PERIPHERAL SMEAR
[2017-10-16 10:30] LABS: WHITE BLOOD COUNT 1.9 10^3/uL (4.0-10.0)
[2017-10-16 10:41] LABS: CONTROL LINE MONO INT CTR LINE PRESENT; MONO SCRN NEGATIVE (NEGATIVE)
[2017-10-16 10:50] LABS: AMPHETAMINES LEVEL URINE NEGATIVE (NEGATIVE); BARBITURATES URINE NEGATIVE (NEGATIVE); BENZODIAZEPINES URINE POSITIVE (NEGATIVE); CANNABINOIDS URINE NEGATIVE (NEGATIVE); CHLORIDE,RANDOM URINE 106 MEQ/L; COCAINE METABOLITE URINE POSITIVE (NEGATIVE); METHADONE URINE NEGATIVE (NEGATIVE); OPIATES URINE POSITIVE (NEGATIVE); PHENCYCLIDINE URINE NEGATIVE (NEGATIVE); POTASSIUM RANDOM URINE 93.6 MEQ/L; SODIUM,RANDOM URINE 48 MEQ/L
[2017-10-16 10:52] LABS: TOTAL PROTEIN,RANDOM URINE 577.2 MG/DL (0.0-12.0)
[2017-10-16 11:05] LABS: OSMOLALITY URINE 685 MOSM/KG (500-800)
[2017-10-16] MEDS: VANCOMYCIN HCL 1,000 MG, VIAL MATE ADAPTER 1 EACH in D5W 250 ML IV ×3 (11:06→22:33)
[2017-10-16] MEDS: NS 500 ML IV (11:06)
[2017-10-16 11:27] LABS: ESTIMATED AVERAGE GLUCOSE 160 MG/DL (60-110); HEMOGLOBIN A1c 7.2 %
[2017-10-16] MEDS ORDERED: NORCO, ANEXSIA 5/325MG TABLET (HYDROcodone/ACETAMINOPHEN) PO (11:45)
[2017-10-16] MEDS ORDERED: ALPRAZolam 0.5 MG TAB PO (11:45)
[2017-10-16] MEDS: KCL 20MEQ in NS 1000ML 1,000 ML IV ×2 (11:55→19:39)
[2017-10-16 11:58] LABS: BEDSIDE GLUCOSE 204 MG/DL (70-105)
[2017-10-16] MEDS: lamoTRIgine 100MG TAB PO ×2 (12:11→21:00)
[2017-10-16] MEDS: HumaLOG INSULIN (NovoLOG) PER UNIT SC ×3 (12:11→21:01)
[2017-10-16] MEDS: ACYCLOVIR 1,000 MG in D5W 250 ML IV ×2 (12:24→19:40)
[2017-10-16] MEDS: MEROPENEM INJ 1 GM in APPROPRIATE DILUENT 1 EA IV ×2 (13:50→21:00)
[2017-10-16 14:18] LABS: ANION GAP 10 MEQ/L (8-16); BLOOD UREA NITROGEN 18 MG/DL (7-18); CALCIUM LEVEL 7.4 MG/DL (8.5-10.1); CARBON DIOXIDE LEVEL 24 MEQ/L (21-32); CHLORIDE LEVEL 109 MEQ/L (98-107); GLOMERULAR FILTRATION RATE 53.9 (>60); GLUCOSE, FASTING 214 MG/DL (70-100); POTASSIUM SERUM 3.3 MEQ/L (3.5-5.1); SODIUM LEVEL 143 MEQ/L (136-145)
[2017-10-16] MEDS: HEPARIN SOD (PORCINE) 5000 UNITS/ML VIAL SC ×2 (15:15→22:33)
[2017-10-16] MEDS: PERCOCET 5MG/325MG TAB PO ×3 (15:20→23:53)
[2017-10-16 17:01] LABS: BEDSIDE GLUCOSE 148 MG/DL (70-105)
[2017-10-16 20:39] LABS: BEDSIDE GLUCOSE 262 MG/DL (70-105)
[2017-10-16] MEDS: SENOKOT S TAB PO (21:00)
[2017-10-17] MEDS: ALBUTEROL 90 MCG/ACT 8GM HFA INHALER INH (03:26)
[2017-10-17] MEDS: ACYCLOVIR 1,000 MG in D5W 250 ML IV (04:13)
[2017-10-17] MEDS: PERCOCET 5MG/325MG TAB PO ×4 (04:13→23:25)
[2017-10-17] MEDS: MEROPENEM INJ 1 GM in APPROPRIATE DILUENT 1 EA IV ×3 (05:22→20:15)
[2017-10-17] MEDS: HEPARIN SOD (PORCINE) 5000 UNITS/ML VIAL SC ×3 (05:22→21:28)
[2017-10-17] MEDS: KCL 20MEQ in NS 1000ML 1,000 ML IV ×4 (05:33→23:39)
[2017-10-17 06:02] LABS: HEMOGLOBIN 10.2 g/dl (13.5-17.5); MEAN CORPUSCULAR HGB CONC 32.9 g/dl (32.0-36.5); MEAN CORPUSCULAR VOLUME 94.2 fl (80.0-96.0); PLATELET COUNT, AUTOMATED 179 10^3/uL (150-450); RED BLOOD COUNT 3.29 10^6/uL (4.30-6.10); RED CELL DISTRIBUTION WIDTH 11.9 % (11.5-14.5); WHITE BLOOD COUNT 5.7 10^3/uL (4.0-10.0)
[2017-10-17] MEDS: VANCOMYCIN HCL 1,000 MG, VIAL MATE ADAPTER 1 EACH in D5W 250 ML IV ×3 (06:23→21:27)
[2017-10-17 06:28] LABS: ALBUMIN 2.2 GM/DL (3.2-5.2); ALBUMIN/GLOBULIN RATIO 0.58 (1.00-1.93); ALKALINE PHOSPHATASE 100 U/L (45-117); ALT/SGPT 152 U/L (12-78); ANION GAP 9 MEQ/L (8-16); AST/SGOT 113 U/L (7-37); BLOOD UREA NITROGEN 17 MG/DL (7-18); CALCIUM LEVEL 7.2 MG/DL (8.5-10.1); CARBON DIOXIDE LEVEL 24 MEQ/L (21-32); CHLORIDE LEVEL 107 MEQ/L (98-107); CREATININE FOR GFR 1.54 MG/DL (0.70-1.30); GLOMERULAR FILTRATION RATE > 60.0 (>60); GLUCOSE, FASTING 228 MG/DL (70-100); MAGNESIUM LEVEL 1.8 MG/DL (1.8-2.4); POTASSIUM SERUM 3.5 MEQ/L (3.5-5.1); SODIUM LEVEL 140 MEQ/L (136-145)
[2017-10-17] MEDS: HumaLOG INSULIN (NovoLOG) PER UNIT SC ×4 (08:25→20:26)
[2017-10-17] MEDS: ONDANSETRON 4MG/2ML VIAL (J2405) IV ×3 (08:26→22:03)
[2017-10-17] MEDS: VANCOMYCIN HCL 500 MG in D5W MINI-BAG PLUS 100 ML IV (08:26)
[2017-10-17] MEDS: POTASSIUM CHLORIDE 10 MEQ SR TABLET PO (09:31)
[2017-10-17] MEDS: PANTOPRAZOLE 40MG TAB (PROTONIX) PO (09:31)
[2017-10-17] MEDS: ATORVASTATIN 20 MG TAB PO (09:31)
[2017-10-17] MEDS: MAG SULF 1GM/100ML (MAG RUN) 1 GM in APPROPRIATE DILUENT 1 EA IV (09:31)
[2017-10-17] MEDS: SENOKOT S TAB PO ×2 (09:32→20:16)
[2017-10-17] MEDS: lamoTRIgine 100MG TAB PO ×2 (09:32→20:16)
[2017-10-17] MEDS: cefTRIAXone SOD 2 GM in D5W MINI-BAG PLUS 50 ML IV (10:40)
[2017-10-17 12:03] LABS: BEDSIDE GLUCOSE 192 MG/DL (70-105)
[2017-10-17] MEDS: PREVNAR 13 VACCINE SYRINGE (CPT CODE:90670) IM (14:05)
[2017-10-17 17:25] LABS: BEDSIDE GLUCOSE 159 MG/DL (70-105)
[2017-10-17] MEDS: traMADol 50 MG TAB PO (20:16)
[2017-10-17 20:25] LABS: BEDSIDE GLUCOSE 184 MG/DL (70-105)
[2017-10-18] MEDS: ONDANSETRON 4MG/2ML VIAL (J2405) IV (03:59)
[2017-10-18] MEDS: ACETAMINOPHEN TAB 650MG DOSE (2X325MG) PO (04:00)
[2017-10-18] MEDS: MEROPENEM INJ 1 GM in APPROPRIATE DILUENT 1 EA IV (04:00)
[2017-10-18 05:13] LABS: HEMATOCRIT 29.6 % (42.0-52.0); HEMOGLOBIN 9.8 g/dl (13.5-17.5); MEAN CORPUSCULAR HEMOGLOBIN 31.4 pg (27.0-33.0); MEAN CORPUSCULAR HGB CONC 33.1 g/dl (32.0-36.5); MEAN CORPUSCULAR VOLUME 94.9 fl (80.0-96.0); PLATELET COUNT, AUTOMATED 182 10^3/uL (150-450); RED BLOOD COUNT 3.12 10^6/uL (4.30-6.10); RED CELL DISTRIBUTION WIDTH 12.1 % (11.5-14.5); WHITE BLOOD COUNT 6.6 10^3/uL (4.0-10.0)
[2017-10-18 05:44] LABS: ALBUMIN 2.3 GM/DL (3.2-5.2); ALKALINE PHOSPHATASE 111 U/L (45-117); ALT/SGPT 139 U/L (12-78); ANION GAP 9 MEQ/L (8-16); AST/SGOT 69 U/L (7-37); BILIRUBIN,TOTAL 1.1 MG/DL (0.2-1.0); BLOOD UREA NITROGEN 9 MG/DL (7-18); CALCIUM LEVEL 7.7 MG/DL (8.5-10.1); CARBON DIOXIDE LEVEL 25 MEQ/L (21-32); CHLORIDE LEVEL 107 MEQ/L (98-107); CREATININE FOR GFR 1.27 MG/DL (0.70-1.30); GLOMERULAR FILTRATION RATE > 60.0 (>60); GLUCOSE, FASTING 195 MG/DL (70-100); MAGNESIUM LEVEL 1.9 MG/DL (1.8-2.4); POTASSIUM SERUM 3.8 MEQ/L (3.5-5.1); SODIUM LEVEL 141 MEQ/L (136-145); TOTAL PROTEIN 5.6 GM/DL (6.4-8.2)
[2017-10-18] MEDS: VANCOMYCIN HCL 1,000 MG, VIAL MATE ADAPTER 1 EACH in D5W 250 ML IV (05:59)
[2017-10-18] MEDS: HEPARIN SOD (PORCINE) 5000 UNITS/ML VIAL SC ×3 (05:59→21:52)
[2017-10-18] MEDS: PERCOCET 5MG/325MG TAB PO ×3 (06:16→21:18)
[2017-10-18] MEDS ORDERED: VANCOMYCIN HCL 1,000 MG, VIAL MATE ADAPTER 1 EACH in D5W 250 ML IV (08:00)
[2017-10-18] MEDS: SENOKOT S TAB PO ×2 (08:54→21:00)
[2017-10-18] MEDS: PANTOPRAZOLE 40MG TAB (PROTONIX) PO (08:54)
[2017-10-18] MEDS: ATORVASTATIN 20 MG TAB PO (08:54)
[2017-10-18] MEDS: lamoTRIgine 100MG TAB PO ×2 (08:54→21:00)
[2017-10-18] MEDS: cefTRIAXone SOD 2 GM in D5W MINI-BAG PLUS 50 ML IV (08:55)
[2017-10-18] MEDS: HumaLOG INSULIN (NovoLOG) PER UNIT SC ×4 (08:55→20:09)
[2017-10-18] MEDS: KCL 20MEQ in NS 1000ML 1,000 ML IV ×2 (10:53→21:15)
[2017-10-18 11:24] LABS: HIV 1&2 SCREEN CENTAUR NEGATIVE (NEGATIVE)
[2017-10-18 12:28] LABS: BEDSIDE GLUCOSE 218 MG/DL (70-105)
[2017-10-18] MEDS: METOCLOPRAMIDE 5 MG TAB PO ×2 (12:28→18:24)
[2017-10-18] MEDS: ALBUTEROL 90 MCG/ACT 8GM HFA INHALER INH (12:57)
[2017-10-18] MEDS ORDERED: VANCOMYCIN HCL 750 MG, VIAL MATE ADAPTER 1 EACH in D5W 250 ML IV (14:00)
[2017-10-18] MEDS ORDERED: VANCOMYCIN HCL 500 MG in D5W MINI-BAG PLUS 100 ML IV (15:00)
[2017-10-18 18:04] LABS: BEDSIDE GLUCOSE 169 MG/DL (70-105)
[2017-10-18] MEDS: **hydrALAZINE HCL** 25 MG TAB PO ×2 (18:24→21:18)
[2017-10-18 20:03] LABS: BEDSIDE GLUCOSE 183 MG/DL (70-105)
[2017-10-19 00:07] LABS: Lyme Disease IgG/IgM Antibodie <0.91 ISR (0.00-0.90); Lyme Disease IgM Ab Quantitati <0.80 index (0.00-0.79)
[2017-10-19] MEDS: ALBUTEROL 90 MCG/ACT 8GM HFA INHALER INH ×3 (03:51→13:03)
[2017-10-19] MEDS: PERCOCET 5MG/325MG TAB PO ×3 (04:14→21:19)
[2017-10-19] MEDS: hydrOXYzine 25 MG TAB PO (04:14)
[2017-10-19] MEDS: HEPARIN SOD (PORCINE) 5000 UNITS/ML VIAL SC ×3 (05:25→20:30)
[2017-10-19 05:42] LABS: HEMATOCRIT 28.8 % (42.0-52.0); HEMOGLOBIN 9.6 g/dl (13.5-17.5); MEAN CORPUSCULAR HEMOGLOBIN 30.9 pg (27.0-33.0); MEAN CORPUSCULAR HGB CONC 33.3 g/dl (32.0-36.5); MEAN CORPUSCULAR VOLUME 92.6 fl (80.0-96.0); PLATELET COUNT, AUTOMATED 219 10^3/uL (150-450); RED BLOOD COUNT 3.11 10^6/uL (4.30-6.10); RED CELL DISTRIBUTION WIDTH 12.2 % (11.5-14.5); WHITE BLOOD COUNT 6.3 10^3/uL (4.0-10.0)
[2017-10-19 05:57] LABS: ERYTHROCYTE SEDIMENTATION RATE 108 mm/hr (0-15)
[2017-10-19] MEDS: **hydrALAZINE HCL** 25 MG TAB PO ×3 (06:01→21:19)
[2017-10-19 06:18] LABS: ALBUMIN 2.2 GM/DL (3.2-5.2); ALBUMIN/GLOBULIN RATIO 0.54 (1.00-1.93); ALKALINE PHOSPHATASE 125 U/L (45-117); ALT/SGPT 137 U/L (12-78); ANION GAP 7 MEQ/L (8-16); AST/SGOT 67 U/L (7-37); BILIRUBIN,TOTAL 0.7 MG/DL (0.2-1.0); BLOOD UREA NITROGEN 10 MG/DL (7-18); CARBON DIOXIDE LEVEL 27 MEQ/L (21-32); CHLORIDE LEVEL 105 MEQ/L (98-107); CREATININE FOR GFR 1.13 MG/DL (0.70-1.30); GLOMERULAR FILTRATION RATE > 60.0 (>60); GLUCOSE, FASTING 221 MG/DL (70-100); POTASSIUM SERUM 3.5 MEQ/L (3.5-5.1); SODIUM LEVEL 139 MEQ/L (136-145); TOTAL PROTEIN 6.3 GM/DL (6.4-8.2)
[2017-10-19] MEDS: METOCLOPRAMIDE 5 MG TAB PO ×3 (07:20→17:21)
[2017-10-19] MEDS: PANTOPRAZOLE 40MG TAB (PROTONIX) PO (08:29)
[2017-10-19] MEDS: SENOKOT S TAB PO ×2 (08:30→20:30)
[2017-10-19] MEDS: ATORVASTATIN 20 MG TAB PO (08:37)
[2017-10-19] MEDS: lamoTRIgine 100MG TAB PO ×2 (08:37→21:19)
[2017-10-19] MEDS: HumaLOG INSULIN (NovoLOG) PER UNIT SC ×4 (08:37→20:29)
[2017-10-19] MEDS: cefTRIAXone SOD 2 GM in D5W MINI-BAG PLUS 50 ML IV (08:38)
[2017-10-19] MEDS: KCL 20MEQ in NS 1000ML 1,000 ML IV (08:38)
[2017-10-19] MEDS ORDERED: SLF 3 ML SYR IV (11:00)
[2017-10-19 12:13] LABS: BEDSIDE GLUCOSE 198 MG/DL (70-105)
[2017-10-19] MEDS: SLF 3 ML SYR IV ×2 (14:12→21:20)
[2017-10-19 17:20] LABS: BEDSIDE GLUCOSE 182 MG/DL (70-105)
[2017-10-19 20:07] LABS: GAMMA GLUTAMYLTRANSPEPTIDASE 221 U/L (15-85)
[2017-10-19 20:27] LABS: BEDSIDE GLUCOSE 186 MG/DL (70-105)
[2017-10-19] MEDS: guaiFENesin DM LIQ 10ML UD PO (21:18)
[2017-10-19] MEDS: FUROSEMIDE 20 MG TAB PO (21:20)
[2017-10-20] MEDS: HEPARIN SOD (PORCINE) 5000 UNITS/ML VIAL SC ×4 (05:33→21:55)
[2017-10-20] MEDS: **hydrALAZINE HCL** 25 MG TAB PO ×3 (05:33→21:51)
[2017-10-20] MEDS: LevoFLOXacin 750 MG TABLET PO (05:33)
[2017-10-20] MEDS: SLF 3 ML SYR IV ×3 (05:34→21:49)
[2017-10-20] MEDS: guaiFENesin DM LIQ 10ML UD PO (06:12)
[2017-10-20] MEDS: HumaLOG INSULIN (NovoLOG) PER UNIT SC ×4 (07:30→21:00)
[2017-10-20 07:55] LABS: BEDSIDE GLUCOSE 188 MG/DL (70-105)
[2017-10-20] MEDS ORDERED: ISOVUE-370 76% 100ML VIAL (Q9967) As Ordered (08:49)
[2017-10-20] MEDS: lamoTRIgine 100MG TAB PO ×3 (09:00→21:47)
[2017-10-20 09:04] LABS: HEMATOCRIT 30.6 % (42.0-52.0); HEMOGLOBIN 10.3 g/dl (13.5-17.5); MEAN CORPUSCULAR HEMOGLOBIN 31.2 pg (27.0-33.0); MEAN CORPUSCULAR HGB CONC 33.7 g/dl (32.0-36.5); MEAN CORPUSCULAR VOLUME 92.7 fl (80.0-96.0); PLATELET COUNT, AUTOMATED 333 10^3/uL (150-450); RED CELL DISTRIBUTION WIDTH 12.2 % (11.5-14.5); WHITE BLOOD COUNT 7.6 10^3/uL (4.0-10.0)
[2017-10-20 09:05] LABS: RETIC HEMOGLOBIN EQUIVALENT 29.1 pg (24-36); RETICULOCYTE # 37.7 10^9/L (17-77); RETICULOCYTE % 1.2 % (0.5-1.5)
[2017-10-20 09:16] LABS: HEPATITIS B SURFACE ANTIGEN NEGATIVE (NEGATIVE)
[2017-10-20 09:34] LABS: ALBUMIN 2.2 GM/DL (3.2-5.2); ALKALINE PHOSPHATASE 140 U/L (45-117); ALT/SGPT 134 U/L (12-78); ANION GAP 9 MEQ/L (8-16); AST/SGOT 54 U/L (7-37); BILIRUBIN,TOTAL 0.6 MG/DL (0.2-1.0); BLOOD UREA NITROGEN 11 MG/DL (7-18); CALCIUM LEVEL 8.6 MG/DL (8.5-10.1); CARBON DIOXIDE LEVEL 27 MEQ/L (21-32); CHLORIDE LEVEL 106 MEQ/L (98-107); CREATININE FOR GFR 1.18 MG/DL (0.70-1.30); GLOMERULAR FILTRATION RATE > 60.0 (>60); GLUCOSE, FASTING 163 MG/DL (70-100); POTASSIUM SERUM 3.6 MEQ/L (3.5-5.1); SODIUM LEVEL 142 MEQ/L (136-145); TOTAL PROTEIN 6.6 GM/DL (6.4-8.2)
[2017-10-20 09:38] LABS: HEPATITIS C VIRUS ABY INDEX 0.1 INDEX (<0.8)
[2017-10-20 09:44] LABS: FERRITIN 1489 NG/ML (26-388); IRON (FE) 42 UG/DL (65-175); PERCENT SATURATION 18.7 % (19.7-50.0); TOTAL IRON BINDING CAPACITY 225 UG/DL (250-450)
[2017-10-20 09:57] LABS: VITAMIN B12 LEVEL 962 PG/ML (247-911)
[2017-10-20] MEDS: FUROSEMIDE 20 MG/2 ML VIAL (J1940) IV (10:15)
[2017-10-20] MEDS: amLODIPine 5 MG TAB PO (10:16)
[2017-10-20] MEDS: SENOKOT S TAB PO ×2 (10:16→21:00)
[2017-10-20] MEDS: PANTOPRAZOLE 40MG TAB (PROTONIX) PO (10:17)
[2017-10-20] MEDS: ATORVASTATIN 20 MG TAB PO (10:17)
[2017-10-20 11:35] LABS: BEDSIDE GLUCOSE 170 MG/DL (70-105)
[2017-10-20] MEDS: FUROSEMIDE 40 MG/4 ML VIAL (J1940) IV ×2 (13:18→18:13)
[2017-10-20] MEDS: FERROUS SULFATE 300MG/5ML UDC LIQUID PO (13:43)
[2017-10-20 16:37] LABS: BEDSIDE GLUCOSE 145 MG/DL (70-105)
[2017-10-20 21:37] LABS: BEDSIDE GLUCOSE 176 MG/DL (70-105)
[2017-10-20] MEDS: PERCOCET 5MG/325MG TAB PO (21:47)
[2017-10-21] MEDS: **hydrALAZINE HCL** 25 MG TAB PO (04:15)
[2017-10-21 05:51] LABS: HEMATOCRIT 31.5 % (42.0-52.0); HEMOGLOBIN 10.5 g/dl (13.5-17.5); MEAN CORPUSCULAR HEMOGLOBIN 31.2 pg (27.0-33.0); MEAN CORPUSCULAR HGB CONC 33.3 g/dl (32.0-36.5); MEAN CORPUSCULAR VOLUME 93.5 fl (80.0-96.0); PLATELET COUNT, AUTOMATED 416 10^3/uL (150-450); RED BLOOD COUNT 3.37 10^6/uL (4.30-6.10); RED CELL DISTRIBUTION WIDTH 12.3 % (11.5-14.5); WHITE BLOOD COUNT 8.1 10^3/uL (4.0-10.0)
[2017-10-21] MEDS: HEPARIN SOD (PORCINE) 5000 UNITS/ML VIAL SC (06:00)
[2017-10-21 06:06] LABS: ALBUMIN 2.2 GM/DL (3.2-5.2); ALBUMIN/GLOBULIN RATIO 0.49 (1.00-1.93); ALKALINE PHOSPHATASE 138 U/L (45-117); ALT/SGPT 101 U/L (12-78); ANION GAP 10 MEQ/L (8-16); AST/SGOT 29 U/L (7-37); BILIRUBIN,TOTAL 0.4 MG/DL (0.2-1.0); BLOOD UREA NITROGEN 18 MG/DL (7-18); C REACTIVE PROTEIN QUANTITATIV 8.56 MG/DL (0.00-0.30); CALCIUM LEVEL 8.7 MG/DL (8.5-10.1); CARBON DIOXIDE LEVEL 28 MEQ/L (21-32); CHLORIDE LEVEL 103 MEQ/L (98-107); CREATININE FOR GFR 1.42 MG/DL (0.70-1.30); GLOMERULAR FILTRATION RATE > 60.0 (>60); GLUCOSE, FASTING 236 MG/DL (70-100); MAGNESIUM LEVEL 1.8 MG/DL (1.8-2.4); SODIUM LEVEL 141 MEQ/L (136-145); TOTAL PROTEIN 6.7 GM/DL (6.4-8.2)
[2017-10-21] MEDS: LevoFLOXacin 750 MG TABLET PO (06:38)
[2017-10-21] MEDS: POTASSIUM CHLORIDE 10 MEQ SR TABLET PO ×2 (06:38→08:45)
[2017-10-21] MEDS: SLF 3 ML SYR IV (06:40)
[2017-10-21] MEDS: FERROUS SULFATE 300MG/5ML UDC LIQUID PO (08:43)
[2017-10-21] MEDS: SENOKOT S TAB PO (08:45)
[2017-10-21] MEDS: PANTOPRAZOLE 40MG TAB (PROTONIX) PO (08:46)
[2017-10-21] MEDS: amLODIPine 10 MG TAB PO (08:46)
[2017-10-21] MEDS: ATORVASTATIN 20 MG TAB PO (08:46)
[2017-10-21] MEDS: HumaLOG INSULIN (NovoLOG) PER UNIT SC (08:47)
[2017-10-21] MEDS: lamoTRIgine 100MG TAB PO (08:48)
[2017-10-21] MEDS ORDERED: POTASSIUM CHLORIDE 10 MEQ SR TABLET PO (11:30)
[2017-10-21] MEDS ORDERED: **hydrALAZINE** 50 MG TAB PO (14:00)
== END 2017-10-21 10:14 | disposition home or self-care (01) | DRG 720 ==
LOC: M ED 06:35 → M ED INP 09:46 → M PCU 14:04
DX: A41.51 Sepsis due to Escherichia coli [E. coli] (principal); G93.40 Encephalopathy, unspecified; N17.9 Acute kidney failure, unspecified; D64.9 Anemia, unspecified; F32.9 Major depressive disorder, single episode, unspecified; E11.9 Type 2 diabetes mellitus without complications; I10 Essential (primary) hypertension; R74.0 Nonspecific elevation of levels of transaminase and lactic acid dehydrogenase [LDH]; E66.9 Obesity, unspecified; E78.5 Hyperlipidemia, unspecified; Z91.048 Other nonmedicinal substance allergy status; F17.210 Nicotine dependence, cigarettes, uncomplicated; Z79.899 Other long term (current) drug therapy; Z79.891 Long term (current) use of opiate analgesic; Z68.32 Body mass index [BMI] 32.0-32.9, adult; R65.20 Severe sepsis without septic shock

== ENCOUNTER → 2017-11-03 | Outpatient (CLI) | payer OTHER ==
[2017-11-03 17:05] LABS: ANION GAP 12 MEQ/L (8-16); BLOOD UREA NITROGEN 17 MG/DL (7-18); CALCIUM LEVEL 10.3 MG/DL (8.5-10.1); CARBON DIOXIDE LEVEL 27 MEQ/L (21-32); CHLORIDE LEVEL 103 MEQ/L (98-107); GLOMERULAR FILTRATION RATE > 60.0 (>60); GLUCOSE, FASTING 224 MG/DL (70-100); POTASSIUM SERUM 4.8 MEQ/L (3.5-5.1); SODIUM LEVEL 142 MEQ/L (136-145)
== END ==
LOC: M WUC 15:05
DX: N17.9 Acute kidney failure, unspecified (principal)
CPT/HCPCS: 80048

== ENCOUNTER → 2018-04-19 | Outpatient (REF) | payer OTHER ==
[~2018-04-19] MED LIST changes: +ALPR1TAB3 PO; +ALPR2TAB3 PO; -AMLO10TA2 PO; +AMLO10TA5 PO; +ATOR40TA75 PO; +CEFD300CAP PO; +CLEO300C2 PO; +HYDR-3363 PO; +HYDROCO/APAP PO; +LAMO1TAB PO; +LAMO25CH6 PO; +LEVA750T7 PO; +LIPI80TA PO; +LISI40TA PO; -LISI40TAB PO; +METH-914 PO; +METH1CHW3 PO; +NORC1TAB4 PO; -VITA1CAP40 PO; +VITA50005 PO; +ZOFR4TAB14 PO; -ZOFR4TAB3 PO
[2018-04-19 20:27] LABS: HEMOGLOBIN A1c 8.8 %
[2018-04-19 20:30] LABS: ALBUMIN 3.5 GM/DL (3.2-5.2); ALT/SGPT 33 U/L (12-78); BILIRUBIN,TOTAL 0.5 MG/DL (0.2-1.0); BLOOD UREA NITROGEN 17 MG/DL (7-18); CALCIUM LEVEL 8.6 MG/DL (8.5-10.1); CARBON DIOXIDE LEVEL 28 MEQ/L (21-32); CHLORIDE LEVEL 105 MEQ/L (98-107); CHOLESTEROL LEVEL 263 MG/DL (<200); CHOLESTEROL RISK RATIO 5.595 (<5); CREATININE FOR GFR 1.46 MG/DL (0.70-1.30); FOLATE 9.9 NG/ML; GLOMERULAR FILTRATION RATE > 60.0 (>60); GLUCOSE, FASTING 170 MG/DL (70-100); HDL CHOLESTEROL 47 MG/DL (>40); LDL CHOLESTEROL 167 MG/DL (<100); NON-HDL-C 216 MG/DL; SODIUM LEVEL 140 MEQ/L (136-145); TOTAL 25(OH) VITAMIN D 12.6 NG/ML (30.0-100.0); TOTAL PROTEIN 6.9 GM/DL (6.4-8.2); TRIGLYCERIDES LEVEL 244 MG/DL (<150); VITAMIN B12 LEVEL 627 PG/ML
[2018-04-19 20:43] LABS: BASO % 0.7 % (0.0-1.0); EOS # 0.3 10^3/uL (0.0-0.50); EOS % 5.3 % (0.0-3.0); HEMATOCRIT 37.8 % (42.0-52.0); HEMOGLOBIN 12.4 g/dl (13.5-17.5); LYMPH # 2.2 10^3/uL (1.5-4.5); LYMPH % 38.7 % (24.0-44.0); MEAN CORPUSCULAR HEMOGLOBIN 30.2 pg (27.0-33.0); MEAN CORPUSCULAR HGB CONC 32.8 g/dl (32.0-36.5); MEAN CORPUSCULAR VOLUME 92.2 fl (80.0-96.0); MONO # 0.4 10^3/uL (0.0-0.8); MONO % 7.3 % (0.0-5.0); NEUTROPHILS # 2.7 10^3/uL (1.8-7.7); NEUTROPHILS % 47.8 % (36.0-66.0); PLATELET COUNT, AUTOMATED 432 10^3/uL (150-450); WHITE BLOOD COUNT 5.6 10^3/uL (4.0-10.0)
== END ==
LOC: M LAB REF 17:34
PROVIDERS: ATTEND Nurse Practitioner Family
DX: I10 Essential (primary) hypertension (principal); E78.2 Mixed hyperlipidemia; E11.42 Type 2 diabetes mellitus with diabetic polyneuropathy; E66.9 Obesity, unspecified

== ENCOUNTER → 2018-05-10 | Outpatient (REF) ==
--- NOTE | 2018-05-11 04:38 | REP ---
Clinical: Pain and disability. Technique: AP, lateral, coned-down views of the lumbar spine. Findings: Three views of the lumbosacral spine demonstrate satisfactory alignment and lordosis without acute fracture / compression injury or subluxation. Very minimal endplate sclerosis and subtle anterior spurring at the L4-5 and L5-L1 levels noted. Impression: Very minimal degenerative changes of the lower lumbar spine. No acute fracture / compression injury or subluxation. Electronically Signed by Ray Lui MD 05/11/2018 04:30 A
== END ==
LOC: M SMT 10:27
PROVIDERS: ATTEND Internal Medicine
DX: Z02.71 Encounter for disability determination (principal)

== ENCOUNTER → 2018-08-17 | Outpatient (REF) | payer OTHER, MEDICAID ==
[~2018-08-17] MED LIST changes: -DOXY10CA PO; +DOXY1TAB33 PO; +GLYB-147 PO; -GLYB5TA PO; +HYDR-3715 PO; +LAMO-11 PO; -LAMO1TAB PO; +METH-1022 PO; -METH-914 PO; -NORC1TAB4 PO; +NORC1TAB7 PO; -NORCOTAB PO; +VENL-65 PO; -VENL75TA3 PO
[2018-08-17 18:08] LABS: BASO # 0.1 10^3/uL (0.0-0.2); EOS # 0.5 10^3/uL (0.0-0.50); EOS % 6.7 % (0.0-3.0); HEMATOCRIT 37.8 % (42.0-52.0); HEMOGLOBIN 12.5 g/dl (13.5-17.5); LYMPH % 44.4 % (24.0-44.0); MEAN CORPUSCULAR HEMOGLOBIN 30.7 pg (27.0-33.0); MEAN CORPUSCULAR HGB CONC 33.1 g/dl (32.0-36.5); MEAN CORPUSCULAR VOLUME 92.9 fl (80.0-96.0); MONO # 0.5 10^3/uL (0.0-0.8); MONO % 7.5 % (0.0-5.0); NEUTROPHILS # 2.7 10^3/uL (1.8-7.7); NEUTROPHILS % 40.3 % (36.0-66.0); PLATELET COUNT, AUTOMATED 393 10^3/uL (150-450); RED BLOOD COUNT 4.07 10^6/uL (4.30-6.10); WHITE BLOOD COUNT 6.8 10^3/uL (4.0-10.0)
[2018-08-17 18:17] LABS: ALBUMIN 3.4 GM/DL (3.2-5.2); ALT/SGPT 34 U/L (12-78); BILIRUBIN,TOTAL 0.3 MG/DL (0.2-1.0); BLOOD UREA NITROGEN 30 MG/DL (7-18); CALCIUM LEVEL 8.9 MG/DL (8.5-10.1); CARBON DIOXIDE LEVEL 25 MEQ/L (21-32); CHLORIDE LEVEL 106 MEQ/L (98-107); CHOLESTEROL LEVEL 247 MG/DL (<200); CHOLESTEROL RISK RATIO 6.024 (<5); COMPLEMENT C3 160 MG/DL (90-180); COMPLEMENT C4 44 MG/DL (10-40); CREATININE FOR GFR 1.92 MG/DL (0.70-1.30); FREE T4 0.77 NG/DL (0.76-1.46); GLOMERULAR FILTRATION RATE 49.8 (>60); GLUCOSE, FASTING 221 MG/DL (70-100); HDL CHOLESTEROL 41 MG/DL (>40); NON-HDL-C 206 MG/DL; POTASSIUM SERUM 4.2 MEQ/L (3.5-5.1); RHEUMATOID FACTOR QUANT < 10.0 IU/ML (<15.0); SODIUM LEVEL 141 MEQ/L (136-145); TOTAL PROTEIN 7.1 GM/DL (6.4-8.2); TRIGLYCERIDES LEVEL 467 MG/DL (<150); URIC ACID 8.7 MG/DL (3.5-7.2)
[2018-08-17 18:18] LABS: TOTAL 25(OH) VITAMIN D 9.1 NG/ML (30.0-100.0)
[2018-08-17 21:36] LABS: ERYTHROCYTE SEDIMENTATION RATE 30 mm/hr (0-15)
== END ==
LOC: M LAB REF 17:07
PROVIDERS: ATTEND Family Medicine
DX: M25.571 Pain in right ankle and joints of right foot (principal); Z13.228 Encounter for screening for other metabolic disorders

== ENCOUNTER → 2018-12-27 | Outpatient (REF) | payer OTHER, MEDICAID ==
[~2018-12-27] MED LIST changes: +LISI20TA20 PO; -LISI20TA3 PO
[2018-12-27 18:20] LABS: ALBUMIN 3.5 GM/DL (3.2-5.2); BILIRUBIN,TOTAL 0.4 MG/DL (0.2-1.0); CALCIUM LEVEL 9.2 MG/DL (8.5-10.1); CHOLESTEROL RISK RATIO 4.893 (<5); CREATININE FOR GFR 1.68 MG/DL (0.70-1.30); GLOMERULAR FILTRATION RATE 58.1 (>60); POTASSIUM SERUM 4.1 MEQ/L (3.5-5.1)
[2018-12-27 18:38] LABS: HEMOGLOBIN A1c 7.4 %
== END ==
LOC: M LAB REF 16:25
PROVIDERS: ATTEND Family Medicine
DX: E11.9 Type 2 diabetes mellitus without complications (principal)

== ENCOUNTER 2019-03-02 22:24 | Emergency (ER) | payer MEDICAID, OTHER ==
[~2019-03-02] VITALS: Ht 182.9 cm; Wt 106.8 kg
[2019-03-02 22:24] VITALS: BP 179/91
[2019-03-02] MEDS ORDERED: LISI20TA20 PO (22:32)
[2019-03-02] MEDS ORDERED: ADDE20CA3 PO (22:32)
== END 2019-03-03 00:50 | disposition left against medical advice (07) ==
LOC: M ED 22:24
DX: Z53.21 Procedure and treatment not carried out due to patient leaving prior to being seen by health care provider (principal)

== ENCOUNTER → 2019-03-28 | Outpatient (REF) | payer OTHER ==
[~2019-03-28] MED LIST changes: +ADDE20CA3 PO
[2019-03-28 14:05] LABS: BASO # 0.1 10^3/uL (0.0-0.2); BASO % 0.8 % (0.0-1.0); EOS # 0.5 10^3/uL (0.0-0.5); EOS % 6.9 % (0.0-3.0); HEMATOCRIT 36.3 % (42.0-52.0); HEMOGLOBIN 12.2 g/dl (13.5-17.5); LYMPH # 3.2 10^3/uL (1.5-5.0); LYMPH % 42.3 % (24.0-44.0); MEAN CORPUSCULAR HEMOGLOBIN 31.9 pg (27.0-33.0); MEAN CORPUSCULAR HGB CONC 33.6 g/dl (32.0-36.5); MEAN CORPUSCULAR VOLUME 94.8 fl (80.0-96.0); MONO # 0.6 10^3/uL (0.0-0.8); MONO % 8.5 % (0.0-5.0); NEUTROPHILS # 3.1 10^3/uL (1.5-8.5); NEUTROPHILS % 41.4 % (36.0-66.0); PLATELET COUNT, AUTOMATED 367 10^3/uL (150-450); RED BLOOD COUNT 3.83 10^6/uL (4.30-6.10); WHITE BLOOD COUNT 7.5 10^3/uL (4.0-10.0)
[2019-03-28 14:39] LABS: HEMOGLOBIN A1c 8.1 %
[2019-03-28 14:41] LABS: BILIRUBIN,TOTAL 0.4 MG/DL (0.2-1.0); CALCIUM LEVEL 8.8 MG/DL (8.5-10.1); CHOLESTEROL RISK RATIO 5.295 (<5); CREATININE FOR GFR 1.66 MG/DL (0.70-1.30); FREE T4 1.01 NG/DL (0.76-1.46); GLOMERULAR FILTRATION RATE 58.9 (>60); POTASSIUM SERUM 3.8 MEQ/L (3.5-5.1); THYROID STIMULATING HORMONE 2.56 uIU/ML (0.358-3.740); TOTAL PROTEIN 6.2 GM/DL (6.4-8.2)
[2019-03-28 14:42] LABS: TOTAL 25(OH) VITAMIN D 6.8 NG/ML (30.0-100.0)
== END ==
LOC: M LAB REF 13:14
PROVIDERS: ATTEND Physician Assistant
DX: Z13.9 Encounter for screening, unspecified (principal); F90.9 Attention-deficit hyperactivity disorder, unspecified type; E11.21 Type 2 diabetes mellitus with diabetic nephropathy; Z72.0 Tobacco use; E78.2 Mixed hyperlipidemia; E55.9 Vitamin D deficiency, unspecified; I10 Essential (primary) hypertension

== ENCOUNTER 2019-03-30 17:02 | Emergency (ER) | payer OTHER ==
[2019-03-30 17:06] VITALS: BP 144/78
== END 2019-03-30 17:43 | disposition home or self-care (01) ==
LOC: M ED 17:02
DX: F43.0 Acute stress reaction (principal); E11.9 Type 2 diabetes mellitus without complications; I10 Essential (primary) hypertension; F33.9 Major depressive disorder, recurrent, unspecified; Z88.5 Allergy status to narcotic agent; Z91.041 Radiographic dye allergy status; Z79.899 Other long term (current) drug therapy

== ENCOUNTER 2019-04-10 06:08 | Emergency (ER) | payer OTHER ==
[~2019-04-10] VITALS: Ht 182.9 cm; Wt 102.3 kg
[2019-04-10 07:02] LABS: HEMATOCRIT 35.9 % (42.0-52.0); MEAN CORPUSCULAR HEMOGLOBIN 31.3 pg (27.0-33.0); MEAN CORPUSCULAR HGB CONC 33.4 g/dl (32.0-36.5); MEAN CORPUSCULAR VOLUME 93.5 fl (80.0-96.0); PLATELET COUNT, AUTOMATED 359 10^3/uL (150-450); RED BLOOD COUNT 3.84 10^6/uL (4.30-6.10); WHITE BLOOD COUNT 7.8 10^3/uL (4.0-10.0)
--- NOTE | 2019-04-10 07:25 | REPVR ---
PROCEDURE INFORMATION: Exam: CT Head Without Contrast Exam date and time: 04/10/2019 6:59 AM Age: 43 years old Clinical indication: Pain; Headache; Additional info: Htn/headache TECHNIQUE: Imaging protocol: Computed tomography of the head without contrast. Radiation optimization: All CT scans at this facility use at least one of these dose optimization techniques: automated exposure control; mA and/or kV adjustment per patient size (includes targeted exams where dose is matched to clinical indication); or iterative reconstruction. COMPARISON: CT Head without contrast 10/16/2017 8:12 AM FINDINGS: Brain: Normal. No hemorrhage. Unremarkable white matter. No mass effect. Ventricles: Normal. No ventriculomegaly. Bones/joints: Unremarkable. No acute fracture. Sinuses: Visualized sinuses are unremarkable. No fluid levels. Mastoid air cells: Visualized mastoid air cells are well aerated. Soft tissues: Unremarkable. IMPRESSION: No acute intracranial abnormality. Electronically signed by: Ronald Khoury On 04/10/2019 07:25:04 AM
[2019-04-10 07:28] LABS: BILIRUBIN,TOTAL 0.2 MG/DL (0.2-1.0); CALCIUM LEVEL 8.7 MG/DL (8.5-10.1); CK-MB VALUE MASS 6.3 NG/ML (<3.6); CREATININE FOR GFR 1.76 MG/DL (0.70-1.30); GLOMERULAR FILTRATION RATE 55.1 (>60); POTASSIUM SERUM 3.9 MEQ/L (3.5-5.1); TOTAL PROTEIN 6.2 GM/DL (6.4-8.2); TROPONIN I 0.02 NG/ML (< 0.10)
[2019-04-10] MEDS ORDERED: MORPHINE 4 MG/ML 1ML VIAL/SYRINGE (J2270) IV ONE (08:15)
[2019-04-10] MEDS ORDERED: ONDANSETRON 4MG/2ML VIAL (J2405) IV ONE (08:15)
[2019-04-10] MEDS ORDERED: PENICILLIN V POTASSIUM 500 MG TAB PO ONE (08:15)
[2019-04-10 09:29] VITALS: BP 195/89
[2019-04-10] MEDS ORDERED: hydroCHLOROthiazide 25 MG TAB PO ONE (09:45)
[2019-04-10] MEDS ORDERED: lisinopriL 20 MG TAB PO ONE (09:45)
--- NOTE | 2019-04-10 19:33 | ECGEPIP ---
[facility] - ED Test Date: 2019-04-10 Pat Name: TOM HYLTON Department: Room: - Gender: Male Hospital Laboratory Technician: SANTA : 1975 Requested By: JEREMY BARTH Order Number: [id number] Reading MD: Dafne Cardona Measurements Intervals [place] Rate: 68 P: 44 OR: 194 QRS: 49 QRSD: 98 T: -16 QT: 367 QTc: 393 Interpretive Statements SINUS RHYTHM NONSPECIFIC T-WAVE ABNORMALITY CW 10/16/[address] T WAVE CHANGES Electronically Signed on 04-10-2019 19:33:16 EST by Dafne Cardona
== END 2019-04-10 10:10 | disposition left against medical advice (07) ==
LOC: EDBD 06:08 → M ED 06:08
DX: K08.89 Other specified disorders of teeth and supporting structures (principal); R07.9 Chest pain, unspecified; I10 Essential (primary) hypertension; Z53.20 Procedure and treatment not carried out because of patient's decision for unspecified reasons; Z88.5 Allergy status to narcotic agent; Z79.899 Other long term (current) drug therapy
CPT/HCPCS: 70450; 80053; 82550; 82553; 85027; 93005; 96374; 96375; 99284; J2270; J2405